=== PATIENT | female | born 1965 | race Caucasian/White ===

== ENCOUNTER 2017-06-19 12:18 | Emergency (ER) | payer BC ==
[2017-06-19 14:35] VITALS: BP 113/61
--- NOTE | 2017-06-19 14:55 | UC ---
Masood Montero Thomas, scribed for Miri Etienne MD on 06/19/17 at 1443 . Respiratory Complaint HPI - HPI Summary HPI Summary: The pt is a 51 y/o F presenting to E c/o a cough that began four days ago. The cough produces green sputum. No wheeze, no SOB. The patient has treated the cough with no OTC medications so far but has tried homeopathic oils and nasal spray. She is unsure whether this production is from her sinuses or her lungs. Pt additionally c/o nasal drainage, nasal congestion, generalized malaise, postnasal drip, decreased appetite, and chills. Pt had nausea with vomit on Saturday - improved. Pt denies wheezing and fevers. She is not immunocompromised. She has been able to drink and eat today. She reports that her daughter was recently sick with similar sx. 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 She is accompanied by her daughter. 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 The patients PCP is Dr. Joyce. Patients medication reviewed this visit. - History of Current Complaint Chief Complaint: UCRespiratory Stated Complaint: COUGH Time Seen by Provider: 06/19/17 14:32 Hx Obtained From: Patient, Family/Hotel Yardperson - daughter in the room Hx Last Menstrual Period: 3 weeks ago Onset/Duration: Gradual Onset, Lasting Days - onset four days ago Timing: Constant Character: Cough: Productive, Sputum Description: - green Aggravating Factors: Nothing Alleviating Factors: Nothing Associated Signs And Symptoms: Positive: Chills, Nasal Congestion. Negative: Fever, Wheezing - Allergies/Home Medications Allergies/Adverse Reactions: Allergies Allergy/AdvReac Type Severity Reaction Status Date / Time Sulfa Drugs Allergy Rash Uncoded 06/19/17 14:35 PMH/Surg Hx/FS Hx/Imm Hx Previously Healthy: No Endocrine History: Hypothyroidism Neurological History: Migraine - Surgical History Surgical History: Yes Surgery Procedure, Year, and Place: Ruptured ectopic -2003, Ectopic removed - Family History Known Family History: Positive: Diabetes - Social History Occupation: Employed Full-time Lives: With Family Alcohol Use: Rare Substance Use Type: None Smoking Status (MU): Never Smoked Tobacco Review of Systems Constitutional: Chills, Other - generalized malaise, decreased appetite; NEG: fever Skin: Negative Eyes: Negative ENT: Nasal Discharge, Other - nasal congestion, postnasal drip Respiratory: Cough - green, Other - NEG: wheezing Cardiovascular: Negative Gastrointestinal: Negative Genitourinary: Negative Motor: Negative Neurovascular: Negative Musculoskeletal: Negative Neurological: Negative Psychological: Negative Is Patient Immunocompromised?: No All Other Systems Reviewed And Are Negative: Yes Physical Exam Triage Information Reviewed: Yes Appearance: Well-Appearing, No Pain Distress, Well-Nourished Vital Signs: Initial Vital Signs Temp 97.2 F 06/19/17 14:30 Pulse 76 06/19/17 14:30 BP 113/61 06/19/17 14:30 Pulse Ox 97 06/19/17 14:30 Vital Signs Reviewed: Yes Eye Exam: Normal Eyes: Positive: Conjunctiva Clear, Conjunctiva Inflamed ENT Exam: Normal ENT: Positive: Hearing grossly normal, Nasal congestion, Other: - left TM with fluid + erythma no retraction right TM wnl turbinates inflammed + PND, no erythema, exudate uvula midline Neck exam: Normal Neck: Positive: Supple, Nontender, No Lymphadenopathy Respiratory Exam: Normal Respiratory: Positive: Chest non-tender, Lungs clear, Normal breath sounds, No respiratory distress, No accessory muscle use, Other: - + BS throughout no w/r No increased WOB no retractions Cardiovascular Exam: Normal Cardiovascular: Positive: RRR, No Murmur, Pulses Normal Abdominal Exam: Normal Abdomen Description: Positive: Nontender, No Organomegaly, Soft Bowel Sounds: Positive: Present Musculoskeletal Exam: Normal Musculoskeletal: Positive: Strength Intact, ROM Intact, No Edema Neurological Exam: Normal Neurological: Positive: Alert Psychological Exam: Normal Psychological: Positive: Normal Response To Family Skin Exam: Normal UC Diagnostic Evaluation - Laboratory O2 Sat by Pulse Oximetry: 97 Respiratory Course/Dx - Course Course Of Treatment: The pt is a 51 y/o F a cough with green sputum that began four days ago. The cough produces green sputum. Pt additionally c/o nasal drainage, nasal congestion, generalized malaise, postnasal drip, decreased appetite, and chills. d/w pt. Will check influenza. If neg, will give abx for sinusitis, early bronchitis. pt requesting work note. Pt comfortable and in agreement with plan - Differential Dx/Diagnosis Provider Diagnoses: sinusitis Discharge - Discharge Plan Condition: Stable Disposition: HOME Prescriptions: Azithromycin TAB* [Zithromax TAB (Z-ALMA) 250 mg #6 tabs] 2 tab PO .TODAY, THEN 1 DAILY #1 alam Fluticasone NASAL * [Flonase *] 2 spray BOTH NARES DAILY #1 spray Patient Education Materials: Sinusitis (ED) Forms: *Gen. Provider Communication, *Work Release Referrals: Maria Luisa Joyce MD [Primary Care Provider] - Additional Instructions: - STay well hydrated. Drink plenty of non-alcoholic, non-caffinated beverages - take antibiotics as prescribed -use nasal spray as instructed once daily - After you have been on antibiotics for 2 days - change your toothbrush and your pillowcase. These infections are spread by secretions - do NOT share eating or drinking utensils - clean items you share with other people such as iphone, computer mouse, TV remote, etc - Alternate ibuprofen (Advil, motrin) 600mg and tylenol every 3 hours for pain or fever. Do NOT take ibuprofen if you are taking Naprosyn - Call your doctor or return with questions or concerns The documentation as recorded by the Masood robledo Thomas accurately reflects the service I personally performed and the decisions made by , Miri tEienne MD.
== END 2017-06-19 15:42 | disposition home or self-care (01) ==
LOC: UCEAST 12:18
DX: J32.9 Chronic sinusitis, unspecified (principal); R05 Cough; R68.83 Chills (without fever); E03.9 Hypothyroidism, unspecified; G43.909 Migraine, unspecified, not intractable, without status migrainosus; Z88.2 Allergy status to sulfonamides
CPT/HCPCS: 87502; 99212; G0463

== ENCOUNTER 2018-02-03 20:17 | Emergency (ER) | payer BC ==
[2018-02-03] MEDS ORDERED: NS 0.9% 1000 ML* 1,000 ML IV ONE (22:41)
[2018-02-03] MEDS ORDERED: Ondansetron INJ* 2 MG/ML VIAL IV ONE (22:44)
[2018-02-03] MEDS ORDERED: Morphine VIAL* 4 MG/ML VIAL (1 ml vial) IV ONE (22:44)
[2018-02-03] MEDS ORDERED: Ondansetron ODT TAB* 4 MG ONE (22:51)
[2018-02-03] MEDS ORDERED: Ondansetron ODT TAB* 4 MG PO ONE (23:03)
[2018-02-03 23:18] LABS: ABS Basophils 0 10^3/ul (0-0.2); ABS Eosinophils 0.1 10^3/ul (0-0.6); ABS Monocytes 0.5 10^3/ul (0-0.8); ABS Neutrophils 5.2 10^3/ul (1.5-7.7); ABS Nucleated RBC 0 10^3/ul; Eosinophil % 2.2 % (0-6); Hematocrit 39 % (35-47); Hemoglobin 12.9 g/dl (12.0-16.0); Lymphocyte % 15.2 % (25-47); Mean Corpuscular HGB Conc 34 g/dl (31-36); Mean Corpuscular Hemoglobin 29 pg (27-31); Mean Corpuscular Volume 87 fL (80-97); Mean Platelet Volume 8.8 um3 (7.4-10.4); Nucleated Red Blood Cells % 0; Platelet Count 159 10^3/ul (150-450); Red Blood Count 4.42 10^6/ul (4.0-5.4); Red Cell Distribution Width 13 % (10.5-15); White Blood Count 6.9 10^3/ul (3.5-10.8)
[2018-02-03 23:23] LABS: INR 0.96 (0.77-1.02)
[2018-02-03 23:32] LABS: EGFR Non-African American 71.6 (>60)
[2018-02-04 01:12] VITALS: BP 109/58
--- NOTE | 2018-02-04 02:45 | ED ---
Maeyla Montero Rebecca, scribed for Jimi Morillo MD on 02/03/18 at 2242 . Head Injury - HPI Summary HPI Summary: Pt is a 52 y/o F who presents to ED c/o HASKINS and neck pain s/p falling from horse. Yesterday, at approximately 1730 she was bucked off a horse. Pt believes she hit the left side of her head and back. Confirms she was wearing a helmet and was not immediately evaluated after fall. HASKINS began this morning, initially feeling like a migraine, though gradually worsening throughout the day. Took Ibuprofen last night and rizatriptan this morning which did not improve symptoms though it typically is effective. Associated pain is currently moderate , ranked 5/10. Additionally c/o lower back pain, nausea. Denies photophobia, weakness, and numbness. Evaluated by [facility] who referred her to [facility] [place] ED. - History Of Current Complaint Chief Complaint: EDHeadInjury Stated Complaint: FALL/BACK AND HEAD INJURY Time Seen by Provider: 02/03/18 22:34 Hx Obtained From: Patient Hx Last Menstrual Period: 3 weeks ago Mechanism Of Injury: Fall From Height Of: - Horse Onset/Duration: Still Present Onset of Pain: Hours - This morning Severity Currently: Moderate Pain Intensity: 5 Pain Scale Used: 0-10 Numeric Location of Head Injury: Frontal - Left Associated Signs And Symptoms: Neck Pain, Nausea - Allergies/Home Medications Allergies/Adverse Reactions: Allergies Allergy/AdvReac Type Severity Reaction Status Date / Time Sulfa Drugs Allergy Rash Uncoded 06/19/17 14:35 PMH/Surg Hx/FS Hx/Imm Hx Endocrine/Hematology History: Reports: Hx Thyroid Disease - Low Functioning Thyroid Denies: Hx Diabetes Cardiovascular History: Denies: Hx Hypertension Respiratory History: Denies: Hx Asthma, Hx Chronic Obstructive Pulmonary Disease (COPD) GI History: Denies: Hx Ulcer Musculoskeletal History: Reports: Hx Rheumatoid Arthritis Neurological History: Reports: Hx Migraine - Surgical History Surgery Procedure, Year, and Place: Ruptured ectopic -2003, Ectopic removed Infectious Disease History: No Infectious Disease History: Denies: Hx Clostridium Difficile, Hx Hepatitis, Hx Human Immunodeficiency Virus (HIV), Hx of Known/Suspected MRSA, Hx Shingles, Hx Tuberculosis, Hx Known/ Suspected VRE, Hx Known/Suspected VRSA, History Other Infectious Disease, Traveled Outside the [place] in Last 30 Days - Family History Known Family History: Positive: Diabetes - Social History Alcohol Use: Rare Substance Use Type: Reports: None Smoking Status (MU): Never Smoked Tobacco Review of Systems Negative: Photophobia Positive: Nausea Positive: Other - Neck pain, lower back pain Positive: Headache. Negative: Weakness, Numbness All Other Systems Reviewed And Are Negative: Yes Physical Exam - Summary Physical Exam Summary: VITAL SIGNS: Reviewed. GENERAL: ~Patient is a well-developed and nourished female who is lying comfortable in the stretcher. Patient is not in any acute respiratory distress. HEAD AND FACE: Ecchymosis over the left eye. No skull depressions. No sinus tenderness. EYES: PERRLA, EOMI x 2, No injected conjunctiva, no nystagmus. EARS: Hearing grossly intact. Ear canals and tympanic membranes are within normal limits. MOUTH: Oropharynx within normal limits. NECK: Supple, trachea is midline, no adenopathy, no JVD, no carotid bruit, no c- spine tenderness, neck with full ROM. CHEST: Symmetric, no tenderness at palpation LUNGS: Clear to auscultation bilaterally. No wheezing or crackles. CVS: Regular rate and rhythm, S1 and S2 present, no murmurs or gallops appreciated. ABDOMEN: Soft, non-tender. No signs of distention. No rebound no guarding, and no masses palpated. Bowel sounds are normal. EXTREMITIES: FROM in all major joints, no edema, no cyanosis or clubbing. Tenderness over the cervical and lumbar spines. NEURO: Alert and oriented x 3. No acute neurological deficits. Speech is normal and follows commands. SKIN: Dry and warm Triage Information Reviewed: Yes Vital Signs On Initial Exam: Initial Vitals Temp Pulse Resp BP Pulse Ox 97.1 F 72 20 103/65 97 02/03/18 20:32 02/03/18 20:32 02/03/18 20:32 02/03/18 20:32 02/03/18 20:32 Vital Signs Reviewed: Yes - [place] Coma Scale Glascow Coma Scale Comments: 15 Diagnostics - Vital Signs Vital Signs Temp Pulse Resp BP Pulse Ox 02/03/18 20:32 97.1 F 72 20 103/65 97 - Laboratory Result Diagrams: 02/03/18 23:09 02/03/18 23:09 Lab Statement: Any lab studies that have been ordered have been reviewed, and results considered in the medical decision making process. - CT Brain CT CT Interpretation: No Acute Changes - No acute pathology. ED physician reviewed this radiology report. Pending official report. CT Interpretation Completed By: Radiologist L-Spine CT CT Interpretation: Positive (See Comments) - Fractures of the L3 and L4 spinous processes. ED physician reviewed this radiology report. Pending official report. CT Interpretation Completed By: Radiologist C-Spine CT CT Interpretation: No Acute Changes - No fracture. ED physician reviewed this radiology report. Pending official report. CT Interpretation Completed By: Radiologist Maxillofacial CT CT Interpretation: No Acute Changes - No acute facial bone fracture. ED physician reviewed this radiology report. Pending official report. CT Interpretation Completed By: Radiologist T-Spine CT CT Interpretation: No Acute Changes - No fracture. ED physician reviewed this radiology report. Pending official report. CT Interpretation Completed By: Suzanne Head Injury Course/Dx Assessment/Plan: Pt is a 52 y/o F who presents to ED c/o HASKINS and neck pain s/p falling from horse. Yesterday, at approximately 1730 she was bucked off a horse. Pt believes she hit the left side of her head and back. Confirms she was wearing a helmet and was not immediately evaluated after fall. HASKINS began this morning, initially feeling like a migraine, though gradually worsening throughout the day. Took Ibuprofen last night and rizatriptan this morning which did not improve symptoms though it typically is effective. Associated pain is currently moderate, ranked 5/10. Additionally c/o lower back pain, nausea. Denies photophobia, weakness, and numbness. Evaluated by [facility] who referred her to [facility] [place] [place] ED. Blood work was done. T-spine, C-Spine, brain, maxillofacial CTs reveal no acute findings. L-Spine CT reveals L3 and L4 spinous process fracture. In the ED course, pt received morphine, zofran, and fluids. Pt will be D/C to home with Dx of lumbar spine spinous process fracture. Allergy noted. - Diagnoses Provider Diagnoses: Fracture of spinous process of lumbar vertebra Discharge - Sign-Out/Discharge Documenting (check all that apply): Discharge/Admit/Transfer - Discharge - Discharge Plan Condition: Stable Disposition: HOME Prescriptions: Ibuprofen TAB* [Motrin TAB* 800 MG] 800 mg PO Q6H PRN #30 tab PRN Reason: Pain oxyCODONE/Acetamin 5/325 MG* [Percocet 5/325 TAB*] 1 tab PO Q6H PRN #14 tab MDD 4 PRN Reason: Pain Patient Education Materials: Thoracolumbar Fracture (ED) Forms: *Work Release Referrals: Shyla Hollingsworth MD [Primary Care Provider] - 3 Days Additional Instructions: RETURN TO EMERGENCY DEPARTMENT FOR ANY NEW OR WORSENING SYMPTOMS. The documentation as recorded by the Mayela robledo Rebecca accurately reflects the service I personally performed and the decisions made by Ilia thornton Abdul, MD.
--- NOTE | 2018-02-04 08:16 | RAD ---
INDICATION: Fall, headache. COMPARISON: There are no prior studies available for comparison. TECHNIQUE: Contiguous axial sections of the brain were obtained from the skull base to the vertex without contrast. FINDINGS: The ventricles, cisterns and sulci are within normal limits. No significant focal abnormality or mass effect is seen. There is no evidence for hemorrhage. No significant focal osseous abnormality is seen. The visualized portion of the paranasal sinuses and mastoid air cells appear clear. IMPRESSION: NO EVIDENCE FOR ACUTE INTRACRANIAL ABNORMALITY.
--- NOTE | 2018-02-04 08:18 | RAD ---
INDICATION: Fall from a horse. Patient report of head and neck pain. ED request for CT imaging of the brain, cervical spine, thoracic spine, lumbar spine, and maxillary facial CT COMPARISON: CT brain same date; cervical spine same date TECHNIQUE: Axial source images were acquired from the vertex of the mandible through the orbits. Coronal and sagittal reconstructed images were acquired. FINDINGS: Bones: There is no acute facial bone fracture. Orbits: The globes and intraconal structures appear intact. The optic nerves are symmetric. Extraocular muscles appear normal. There is no intraconal inflammatory change or retrobulbar mass.. Paranasal sinuses: The paranasal sinuses are clear. Brain: There are no acute abnormalities of the visualized brain parenchyma. Soft tissues: Normal Other: None There are no significant soft tissue changes about the visualized facial structures are intact. IMPRESSION: NO ACUTE FACIAL BONE FRACTURE.
--- NOTE | 2018-02-04 08:21 | RAD ---
INDICATION: Neck pain after a fall COMPARISON: None. TECHNIQUE: Axial source images were acquired with coronal and sagittal reformatting. FINDINGS: There is straightening of the normal cervical lordosis. The vertebral bodies and facet joints are otherwise appropriately aligned. There is loss of intervertebral disc height at multiple levels, most severely at C5/C6. There is no fracture or focal bony lesion. The canal and foramina appear widely patent. The odontoid and the atlantodental interval are normal. The prevertebral soft tissues appear normal. There are subcentimeter hypoattenuating foci in the right lobe of the thyroid. There is a more elongated hypoattenuating focus in the left lobe of the thyroid. Otherwise the visualized soft tissue elements of the neck are normal. The visualized lung apices are clear. IMPRESSION: 1. DEGENERATIVE CHANGES OF THE CERVICAL SPINE WITHOUT ACUTE FRACTURE OR DISLOCATION. 2. LOW-ATTENUATION FOCI IN THE THYROID. IF CLINICALLY WARRANTED SUPERIOR CHARACTERIZATION OF THE THYROID CAN BE ACQUIRED WITH A NONEMERGENT ULTRASOUND.
--- NOTE | 2018-02-04 08:23 | RAD ---
INDICATION: Fall from horse. Back pain. COMPARISON: None TECHNIQUE: Noncontrast axial source images was performed from the thoracic inlet to the level the hemidiaphragms. Coronal and and sagittal reformatted images were generated. FINDINGS: Vertebrae: There is no fracture or acute focal bony lesion. There is minor multilevel degenerative spurring of the midthoracic spine Alignment: There is minor kyphosis or this is positional. Central Canal: There are no significant CT abnormalities of the central canal or foramina. MR imaging is a more sensitive method to evaluate the canal and foramina. Intervertebral disc spaces: The disc spaces are maintained. Soft tissues: There are no paravertebral soft tissue abnormalities. IMPRESSION: NO ACUTE FRACTURE.
--- NOTE | 2018-02-04 08:26 | RAD ---
INDICATION: Back pain. COMPARISON: There are no prior studies available for comparison. TECHNIQUE: Contiguous axial sections were obtained beginning above the L1 vertebra and continuing through the L5-S1 disc space. Images were reconstructed in the sagittal and coronal planes. FINDINGS: There is a mild lumbar scoliosis convex toward the left side. The vertebra are otherwise in normal alignment. There are slightly distracted fractures through the spinous processes of the L3 and L4 vertebra. There is no extension into the lamina. The vertebra are otherwise intact. At the L2-L3 level there is a mild broad-based disc bulge and mild hypertrophic changes within the facet joints. There is mild to moderate spinal canal narrowing and mild bilateral neural foraminal narrowing. At the L3-L4 level there is a mild broad-based disc bulge and mild hypertrophic changes within the facet joints. There is moderate spinal canal narrowing and mild bilateral neural foraminal narrowing. At the L4-L5 level there is a mild broad-based disc bulge and moderate hypertrophic changes within the facet joints. There is mild to moderate spinal canal narrowing and moderate bilateral neural foraminal narrowing. The L5-S1 level there is a minimal central disc protrusion. No significant spinal canal narrowing or neural foraminal narrowing is noted. There are moderate hypertrophic changes within the facet joints. IMPRESSION: 1. SLIGHTLY DISPLACED FRACTURES OF THE L3 AND L4 SPINOUS PROCESSES. 2. MODERATE LUMBAR SPONDYLITIC CHANGES NOTED.
== END 2018-02-04 01:11 | disposition home or self-care (01) ==
LOC: ED 20:17
DX: S32.039A Unspecified fracture of third lumbar vertebra, initial encounter for closed fracture (principal); S32.049A Unspecified fracture of fourth lumbar vertebra, initial encounter for closed fracture; V80.010A Animal-rider injured by fall from or being thrown from horse in noncollision accident, initial encounter; Y93.52 Activity, horseback riding; Y92.9 Unspecified place or not applicable; Z88.2 Allergy status to sulfonamides
CPT/HCPCS: 36415; 70450; 70486; 72125; 72128; 72131; 80053; 82150; 83605; 83690; 85025; 85610; 96361; 96374; 99282; A9270-GY; J2270

== ENCOUNTER 2019-04-30 21:04 | Inpatient (IN) | payer BC ==
[2019-04-30] MEDS ORDERED: oxyCODONE TAB* 5 MG TAB PO ONE (21:23)
[2019-04-30] MEDS ORDERED: Ondansetron INJ* 2 MG/ML VIAL IV ONE (21:29)
[2019-04-30] MEDS ORDERED: Morphine 4 MG/ML VIAL (1 ml) 4 MG/ML VIAL IV ONE ×2 (21:29→22:56)
--- NOTE | 2019-04-30 21:45 | ED ---
Adult Trauma - HPI Summary HPI Summary: Patient complains of right hand and right hip pain status post fall from horse. Patient states she was wearing helmet. Denies LOC, HASKINS, vision change, AMS, neck pain, any other pain injury or symptoms. Has not ambulated since fall. - History of Current Complaint Chief Complaint: EDTraumaMultiple Stated Complaint: FELL OF HORSE PER EMS Time Seen by Provider: 04/30/19 21:20 Hx Obtained From: Patient, Family/Deputy Prosecuting Attorney Hx Last Menstrual Period: 3 weeks ago Mechanism of Injury: Fall Ambulatory at the Scene: No Loss of Consciousness: no loss of consciousness Restraints: Helmet Onset/Duration: Started Hours Ago Onset of Pain: Immediate Onset Severity: Moderate Current Severity: Moderate Pain Intensity: 6 Pain Scale Used: 0-10 Numeric Location: Abdomen/Pelvis, Extremities Character: Dull, Aching, Sharp Aggravating Factor(s): Movement Alleviating Factor(s): Nothing Associated Signs & Symptoms: Positive: Negative - Allergy/Home Medications Allergies/Adverse Reactions: Allergies Allergy/AdvReac Type Severity Reaction Status Date / Time Sulfa Drugs Allergy Rash Uncoded 06/19/17 14:35 PMH/Surg Hx/FS Hx/Imm Hx Endocrine/Hematology History: Reports: Hx Thyroid Disease - Low Functioning Thyroid Denies: Hx Diabetes Cardiovascular History: Denies: Hx Hypertension Respiratory History: Denies: Hx Asthma, Hx Chronic Obstructive Pulmonary Disease (COPD) GI History: Denies: Hx Ulcer Musculoskeletal History: Reports: Hx Rheumatoid Arthritis Sensory History: Denies: Hx Legally Blind Opthamlomology History: Denies: Hx Eye Prosthesis EENT History: Denies: Hx Deafness Neurological History: Reports: Hx Migraine Psychiatric History: Denies: Hx Autism - Surgical History Surgery Procedure, Year, and Place: Ruptured ectopic -2004, Ectopic removed Infectious Disease History: No Infectious Disease History: Denies: Hx Clostridium Difficile, Hx Hepatitis, Hx Human Immunodeficiency Virus (HIV), Hx of Known/Suspected MRSA, Hx Shingles, Hx Tuberculosis, Hx Known/ Suspected VRE, Hx Known/Suspected VRSA, History Other Infectious Disease, Traveled Outside the [place] in Last 30 Days - Family History Known Family History: Positive: Diabetes - Social History Alcohol Use: Rare Substance Use Type: Reports: None Smoking Status (MU): Never Smoked Tobacco Review of Systems Constitutional: Negative Eyes: Negative ENT: Negative Cardiovascular: Negative Respiratory: Negative Gastrointestinal: Negative Genitourinary: Negative Musculoskeletal: Other Skin: Negative Neurological: Negative Psychological: Normal All Other Systems Reviewed And Are Negative: Yes Physical Exam - Summary Physical Exam Summary: No ecchymosis, erythema, deformity, swelling noted to right hip or right lower extremity. Swelling noted to dorsal surface of lateral right hand. No trauma noted to mouth, face, head. Full range of motion of neck and mouth. No pain with palpation of neck, back, chest wall, abdomen. Triage Information Reviewed: Yes Vital Signs On Initial Exam: Initial Vitals Temp Pulse Resp BP Pulse Ox 98.0 F 54 18 122/80 99 04/30/19 21:14 04/30/19 21:14 04/30/19 21:14 04/30/19 21:14 04/30/19 21:14 Vital Signs Reviewed: Yes Appearance: Positive: Well-Appearing Skin: Positive: Warm Head/Face: Positive: Normal Head/Face Inspection Eyes: Positive: Normal Neck: Positive: Supple Respiratory/Lung Sounds: Positive: Clear to Auscultation Cardiovascular: Positive: Normal Abdomen Description: Positive: Nontender Musculoskeletal: Positive: Normal Neurological: Positive: Normal Psychiatric: Positive: Normal AVPU Assessment: Alert - Brit Coma Scale Best Eye Response: 4 - Spontaneous Best Motor Response: 6 - Obeys Commands Best Verbal Response: 5 - Oriented Coma Scale Total: 15 Procedures - Splinting 1 Location: right wrist Hand-Made Type: orthoglass Splint: ulnar - gutter Pre-Proc Neuro Vasc Exam: normal Post-Proc Neuro Vasc Exam: normal Diagnostics - Vital Signs Vital Signs Temp Pulse Resp BP Pulse Ox 04/30/19 21:34 18 04/30/19 21:14 98.0 F 54 18 122/80 99 - Laboratory Lab Statement: Any lab studies that have been ordered have been reviewed, and results considered in the medical decision making process. Adult Trauma Course/Dx - Course Course Of Treatment: Patient complains of right hand and right hip pain status post fall from horse. Patient states she was wearing helmet. Denies LOC, HASKINS, vision change, AMS, neck pain, any other pain injury or symptoms. Has not ambulated since fall. Vital signs within normal limits. X-ray positive for right femoral neck fracture. X-ray positive for right fifth metacarpal shaft fracture. Ulnar splint placed on right upper extremity. Patient admitted to hospitalist. - Diagnoses Provider Diagnoses: Fracture neck of femur, Fracture of fifth metacarpal bone Discharge - Sign-Out/Discharge Documenting (check all that apply): Patient Departure Patient Received Moderate/Deep Sedation with Procedure: No - Discharge Plan Condition: Stable Disposition: ADMITTED TO [facility] Referrals: Shital Valle MD [Primary Care Provider] - - Billing Disposition and Condition Condition: STABLE Disposition: Ad[facility] to [facility]
[2019-04-30] MEDS ORDERED: NS 0.9% 1000 ML** 1,000 ML IV ONE (22:56)
[2019-04-30] MEDS ORDERED: fentaNYL* 50 MCG/ML 2 ML VIAL (100 MCG VIAL) IV SLOW PU ONE (23:01)
[2019-05-01] MEDS ORDERED: fentaNYL* 50 MCG/ML 2 ML VIAL (100 MCG VIAL) IV SLOW PU ONE (00:06)
[2019-05-01] MEDS ORDERED: HYDROmorphone INJ* 0.5 MG/0.5 ML SYRINGE IV SLOW PU PRN (01:37)
[2019-05-01] MEDS: HYDROmorphone INJ1* 1 MG/ML SYRINGE IV SLOW PU PRN ×4 (01:52→16:05)
[2019-05-01 02:06] LABS: ABS Basophils 0.1 10^3/ul (0-0.2); ABS Lymphocytes 1.4 10^3/ul (1.0-4.8); ABS Monocytes 0.7 10^3/ul (0-0.8); ABS Neutrophils 8.6 10^3/ul (1.5-7.7); Eosinophil % 0.2 %; Hematocrit 38 % (35-47); Hemoglobin 13.3 g/dL (12.0-16.0); Lymphocyte % 12.7 %; Mean Corpuscular HGB Conc 35 g/dL (31-36); Mean Corpuscular Hemoglobin 30 pg (27-31); Mean Corpuscular Volume 86 fL (80-97); Mean Platelet Volume 8.4 fL (7.4-10.4); Platelet Count 166 10^3/uL (150-450); Red Blood Count 4.37 10^6 /uL (3.70-4.87); Red Cell Distribution Width 14 % (10-15); White Blood Count 10.8 10^3/uL (3.5-10.8)
[2019-05-01 02:11] LABS: INR 0.99 (0.82-1.09)
[2019-05-01 02:21] LABS: BUN/Creatinine Ratio 17.9 (8-20); EGFR African American 73.9 (>60); EGFR Non-African American 61.1 (>60); Potassium 3.6 mmol/L (3.5-5.0)
[2019-05-01] MEDS: NS 0.9% 1000 ML** 1,000 ML IV SCH ×2 (03:29→17:44)
--- NOTE | 2019-05-01 04:44 | HP ---
CC: Dr. Valle * HISTORY AND PHYSICAL: DATE OF ADMISSION: 05/01/19 PRIMARY CARE PROVIDER: Dr. Valle. CHIEF COMPLAINT: Fall from horse and right hip pain. HISTORY OF PRESENT ILLNESS: Ms. Dove is a 53-year-old female who has a history of hypothyroidism and questionable rheumatoid arthritis, who was horseback riding on the evening prior to admission, when she fell off at approximately 7:30 to 7:45 p.m. She immediately had right hip pain and was unable to get up on her own. Luckily, she was riding with another individual. She was brought into the emergency room for evaluation. The patient continues to have severe pain. She is having spasms within the right leg. She additionally has right hand pain though this is much less severe than the hip. She was found to have a right femoral neck fracture and right fifth metacarpal fracture. In terms of the patient's exercise capacity, she is active throughout the day. She does run. She denies any chest pain or shortness of breath with these activities. She has never had a stress test. PAST MEDICAL HISTORY: 1. Hypothyroidism. 2. Questionable rheumatoid arthritis. PAST SURGICAL HISTORY: 1. Ear tubes. 2. Surgery for 2 ectopic pregnancies. MEDICATIONS: [place] Thyroid 30 mg p.o. daily. ALLERGIES: No known drug allergies. FAMILY HISTORY: Mom is living, she is 86. She has a history of AFib, COPD, and she has had a valve replacement. Dad at the age of 52. He had diabetes, but he committed suicide. SOCIAL HISTORY: The patient does not smoke. She drinks alcohol rarely. 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 Her daughter, Saqib Santa , would be her healthcare proxy. REVIEW OF SYSTEMS: A complete 11-system review of systems is obtained. Pertinent positives and negatives are as per HPI, and in addition, the patient does state she suffers from constipation frequently. The remainder of the review of systems is negative. PHYSICAL EXAMINATION GENERAL: The patient is a well-developed, middle-aged female seen lying in the stretcher, appearing to be uncomfortable but in no acute distress. VITAL SIGNS: Blood pressure 96/71, pulse 57, respirations 13, temp 98, O2 sat 97% on room air. HEENT: Pupils are equal and round. Extraocular muscles are intact. Oropharynx is clear. Oral mucosa is moist. There are no submandibular, cervical, or supraclavicular adenopathy. PULMONARY: Lungs are clear to auscultation bilaterally anteriorly and to the lateral bases. CARDIAC: Normal S1, S2. Regular rate and rhythm. I do not appreciate any murmurs. There is no lower extremity edema. ABDOMEN: Bowel sounds are present. Abdomen is soft, nontender, nondistended. MUSCULOSKELETAL: The right lower extremity is externally rotated. The patient moves the upper extremities and left lower extremity actively. SKIN: Warm and dry. There are no rashes. NEUROLOGIC: Cranial nerves II through XII are grossly intact. Sensation is intact to light touch throughout. Strength is normal on the left side. Right side of strength is not tested at this time due to her fractures. PSYCH: The patient is alert. She is oriented x3. Affect appears appropriate. DIAGNOSTIC STUDIES/LAB DATA: No labs. I will order these now. Right hip x- ray reveals a femoral neck fracture. Right hand x-ray reveals a fifth metacarpal fracture. ASSESSMENT AND PLAN: Ms. Dove is a 53-year-old healthy female with a history of hypothyroidism who was horseback riding when she fell off the horse and unfortunately sustained a right femoral neck fracture. 1. Right femoral neck fracture. Orthopedics has been contacted by the emergency room. At this point, I feel that the patient is medically optimized to go to the OR. I am going to obtain an EKG and CBC, BMP, and INR. I do not believe that she needs any further cardiac testing after the EKG is done unless the EKG reveals concerning features. The patient will have p.r.n. hydromorphone for severe pain, which she is currently in. She is having spasms ; however, she is n.p.o. for anticipation of going to the OR later today, I will hold off on any Flexeril. I will also start a bowel regimen in anticipation of the patient becoming constipated in this setting. 2. Hypothyroidism. We will continue home dose of [place] Thyroid. 3. DVT prophylaxis: According to the Adult Thrombosis Prophylaxis Risk Factor Assessment Guide, the patient has a total risk factor score of 6, making her the highest risk. I am going to hold on chemical prophylaxis for now due to the patient likely going to the OR later today and initiate SCDs. 4. Code status is full. TIME SPENT: Fifty-five minutes was spent admitting this patient, of which greater than half was spent [id number] with the patient reviewing her history and performing physical exam. [id number]/[facility] #: [id number] JOELLE
[2019-05-01] MEDS: THYROID PO SCH (11:06)
[2019-05-01] MEDS: Docusate CAP* 100 MG PO SCH ×3 (11:06→20:29)
[2019-05-01] MEDS: Cyclobenzaprine TAB* 10 MG PO PRN (13:23)
[2019-05-01] MEDS ORDERED: Buffered Lidocaine 1% SYRIN* 1 ML/SYRINGE INTRADERM ONE (13:25)
--- NOTE | 2019-05-01 14:52 | PN ---
Subjective Date of Service: 05/01/19 Interval History: Patient resting in bed on assessment. Reports pain in right hip is currently control, but increases with movement or "spasms". Reports pain in right hand is controlled. Denies numbness/tingling, nausea, vomiting, diarrhea, cp, sob. She reports she is having to void in depends as they were not able to establish a patterson during her stay in the ED. She also expresses some constipation. Objective Active Medications: Acetaminophen (Tylenol Tab*) 650 mg PO Q4H PRN PRN Reason: PAIN - MILD Cyclobenzaprine HCl (Flexeril Tab*) 10 mg PO TID PRN PRN Reason: SPASMS Last Admin: 05/01/19 13:23 Dose: 10 mg Dexamethasone Sodium Phosphate (Decadron Iv*) 8 mg IV SLOW PU ONCE ONE Stop: 05/02/19 06:01 Docusate Sodium (Colace Cap*) 100 mg PO BID [facility] Last Admin: 05/01/19 13:23 Dose: 100 mg Hydromorphone HCl (Dilaudid Inj1s*) 1 mg IV SLOW PU Q3H PRN PRN Reason: PAIN - SEVERE Last Admin: 05/01/19 07:46 Dose: 1 mg Sodium Chloride (Ns 0.9% 1000 Ml) 1,000 mls @ 100 mls/hr IV PER RATE [facility] Last Admin: 05/01/19 03:29 Dose: 100 mls/hr Lactated Ringer's (Lactated Ringers 1000 Ml Bag*) 1,000 mls @ 125 mls/hr IV PER RATE [facility] Magnesium Hydroxide (Milk Of Magnesia Liq*) 30 ml PO BID PRN PRN Reason: CONSTIPATION Nft: [place] Thyroid (1 Tab) 1 tab PO DAILY [facility] Last Admin: 05/01/19 11:06 Dose: Not Given Oxycodone HCl (Roxycodone Tab*) 5 mg PO Q6H PRN PRN Reason: PAIN - MODERATE Oxycodone HCl (Roxycodone Tab*) 10 mg PO Q6H PRN PRN Reason: PAIN - SEVERE Polyethylene Glycol/Electrolytes (Miralax*) 17 gm PO DAILY PRN PRN Reason: CONSTIPATION Senna (Senokot Tab*) 1 tab PO BEDTIME PRN PRN Reason: CONSTIPATION Vital Signs - 8 hr 05/01/19 05/01/19 05/01/19 07:46 08:12 08:13 Temperature 98.6 F Pulse Rate 69 Respiratory 17 17 Rate Blood Pressure 77/46 84/60 (mmHg) O2 Sat by Pulse 94 Oximetry 05/01/19 05/01/19 08:46 13:23 Temperature Pulse Rate Respiratory 17 17 Rate Blood Pressure (mmHg) O2 Sat by Pulse Oximetry Oxygen Devices in Use Now: None Appearance: Comfortable, NAD Eyes: No Scleral Icterus Ears/Nose/Mouth/Throat: Clear Oropharnyx, Mucous Membranes Moist Neck: NL Appearance and Movements; NL JVP Respiratory: Symmetrical Chest Expansion and Respiratory Effort, Clear to Auscultation Cardiovascular: NL Sounds; No Murmurs; No JVD, RRR, No Edema Abdominal: NL Sounds; No Tenderness; No Distention Lymphatic: No Cervical Adenopathy Extremities: No Clubbing, Cyanosis Skin: No Rash or Ulcers Neurological: Alert and Oriented x 3, NL Sensation Result Diagrams: 05/01/19 01:59 05/01/19 01:59 Additional Lab and Data: Laboratory Results - last 24 hr 05/01/19 05/01/19 05/01/19 01:59 01:59 01:59 WBC 10.8 RBC 4.37 Hgb 13.3 Hct 38 MCV 86 MCH 30 MCHC 35 RDW 14 Plt Count 166 MPV 8.4 Neut % (Auto) 80.1 Lymph % (Auto) 12.7 [place] % (Auto) 6.5 Eos % (Auto) 0.2 Baso % (Auto) 0.5 Absolute Neuts (auto) 8.6 H Absolute Lymphs (auto) 1.4 Absolute Monos (auto) 0.7 Absolute Eos (auto) 0.0 Absolute Basos (auto) 0.1 Absolute Nucleated RBC 0.0 Nucleated RBC % 0.0 INR (Anticoag Therapy) 0.99 Sodium 137 Potassium 3.6 Chloride 106 Carbon Dioxide 26 Anion Gap 5 BUN 17 Creatinine 0.95 Est GFR ( Amer) 73.9 Est GFR (Non-Af Amer) 61.1 BUN/Creatinine Ratio 17.9 Glucose 113 H Calcium 9.0 Microbiology and Other Data: . Assess/Plan/Problems-Billing Assessment: 53 yr old female with pmh of hypothyroid and RA; who presented to ED after a fall from a horse which resulted in right femoral neck fx - Patient Problems (1) Fracture of femoral neck, right Comment: - Discussed case with Dr Guardado who will be seeing patient this afternoon with plans to go to OR tomorrow at 0800 - Patient provided with PO pain medications including muscle relaxer as she is now taking food - Will be NPO after midnight - Offered patterson for comfort and patient is agreeable to an additional attempt at patterson (2) Hypothyroid Comment: - Cont [place] Thyroid - TSH wnl (3) Rheumatoid arthritis Comment: - Not currently on medications. - Reports she manages symptoms with diet, therefore, diet order placed for no dairy and no gluten. (4) DVT prophylaxis Comment: - Highest Risk - Heparin Sub Q with last dose 2200 tonight in prep for OR Status and Disposition: OR tomorrow. Attending: Bhavin Albright
[2019-05-01 15:43] LABS: TSH (Thyroid Stimulating Horm) 4.92 mcIU/mL (0.34-5.60)
--- NOTE | 2019-05-01 15:54 | CONS ---
ORTHOPEDIC CONSULTATION: DATE OF CONSULT: 05/01/19 ATTENDING PHYSICIAN: Dr. Morgan. ATTENDING ORTHOPEDIC PHYSICIANS: Dr. Benjamín Tobar, Dr. Delores Guardado. CHIEF COMPLAINT: Right hip pain, right hand pain. HISTORY OF PRESENT ILLNESS: Ms. Dove is a 53-year-old active female who was horseback riding on the evening prior to her admission when she was bucked off the horse at roughly 7:30 p.m. She immediately complained of right hip pain and was unable to ambulate. She was riding with another individual who summoned EMS and she was brought to the emergency room for evaluation. She complained of right hand pain as well and plain films of the right hip and right upper extremity have revealed femoral neck fracture on the right and a right fifth metacarpal fracture. She is admitted to the hospitalist service and Orthopedic service has been consulted for her aforementioned injuries. The patient denies recent loss of consciousness or upon her fall, denies other bodily injury other than the aforementioned injuries. PAST MEDICAL HISTORY: Significant for hypothyroidism, questionable rheumatoid arthritis. PAST SURGICAL HISTORY: She has had myringotomy tubes and surgery for 2 ectopic pregnancies. MEDICATIONS: [place] Thyroid 30 mg p.o. daily. ALLERGIES: No known drug allergies. FAMILY HISTORY: The patient's mother is living, history of COPD, heart valve surgery, and atrial fibrillation. Father with a history of diabetes. SOCIAL HISTORY: The patient does not smoke. Rarely drinks alcoholic beverages. Denies use of illicit drugs. She works as a [employer] nurse. She is not . She has 1 child. REVIEW OF SYSTEMS: An 11-point review of systems reviewed with the patient and is per HPI. She also has a history of chronic constipation. PHYSICAL EXAMINATION: General: She is lying supine in the hospital bed. She is alert and oriented x3. She is in no acute distress, pleasant and cooperative. Vital Signs: Revealed a temperature of 98.6, pulse 67, respiratory rate 17, O2 saturation 94% on room air, blood pressure 84/60. HEENT : PERRLA. Lungs: Clear to auscultation. Heart: Regular rate and rhythm. Abdomen: Nontender, nondistended. Normoactive bowel sounds x4. Musculoskeletal: Her leg is in neutral alignment, mild shortening is noted. She has a 2+ dorsalis pedis pulse. She has active dorsiflexion of the right ankle. She has decreased sensation in the toes present from idiopathic peripheral neuropathy. Her calf is nontender and soft. Right upper extremity is currently in a ulnar gutter splint. She has a 2+ radial pulse. Moving her thumb, index and long finger without difficulty. DIAGNOSTIC STUDIES/LAB DATA: Plain films of the pelvis and right hip revealed a displaced right femoral neck fracture. Plain films of the right upper extremity revealed an angulated fifth metacarpal fracture. IMPRESSION AND PLAN: Right femoral neck fracture, displaced. Dr. Guardado will discuss her injury and plan thoroughly today. It is recommended that she undergo right total hip arthroplasty for this injury. Her right hand metacarpal fracture may require open reduction and internal fixation. Dr. Tobar will discuss this with the patient as well. She is currently comfortable in the ulnar gutter splint. She will remain n.p.o. after midnight tonight for probable surgical intervention with Dr. Guardado and Dr. Tobar on 12/16. EVETTE RAMEY [id number]/[facility] #: [id number] MTDD
[2019-05-01] MEDS ORDERED: Heparin VIAL(*) 5000 UNITS/ML VIAL (FIVE THOUSAND) SUBCUT SCH (22:00)
[2019-05-01] MEDS: Acetaminophen TAB* 325 MG PO PRN (23:40)
[2019-05-02] MEDS: Cyclobenzaprine TAB* 10 MG PO PRN (03:06)
[2019-05-02] MEDS: HYDROmorphone INJ1* 1 MG/ML SYRINGE IV SLOW PU PRN (03:07)
[2019-05-02 05:43] LABS: Hematocrit 37 % (35-47); Hemoglobin 12.9 g/dL (12.0-16.0); Mean Corpuscular HGB Conc 35 g/dL (31-36); Mean Corpuscular Hemoglobin 31 pg (27-31); Mean Corpuscular Volume 87 fL (80-97); Mean Platelet Volume 8.3 fL (7.4-10.4); Platelet Count 127 10^3/uL (150-450); Red Blood Count 4.24 10^6 /uL (3.70-4.87); Red Cell Distribution Width 14 % (10-15); White Blood Count 7.3 10^3/uL (3.5-10.8)
[2019-05-02 05:47] LABS: INR 1.19 (0.82-1.09)
[2019-05-02 05:58] LABS: BUN/Creatinine Ratio 17.1 (8-20); Calcium 8.9 mg/dL (8.6-10.3); EGFR African American 87.6 (>60); EGFR Non-African American 72.4 (>60); Potassium 3.8 mmol/L (3.5-5.0)
[2019-05-02] MEDS ORDERED: Dexamethasone IV* 4 MG/ML 1 ML (4 MG) IV SLOW PU ONE (06:00)
[2019-05-02 06:30] LABS: ABS Eosinophils 0.1 10^3/ul (0-0.6); ABS Lymphocytes 0.6 10^3/ul (1.0-4.8); ABS Monocytes 0.4 10^3/ul (0-0.8); ABS Neutrophils 6.1 10^3/ul (1.5-7.7); Eosinophil % 1.2 %; Lymphocyte % 8.8 %
[2019-05-02] MEDS ORDERED: HYDROmorphone INJ1* 1 MG/ML SYRINGE ONE (07:13)
[2019-05-02] MEDS ORDERED: Rocuronium* 10 MG/ML VIAL ONE ×2 (07:14→10:00)
[2019-05-02] MEDS ORDERED: Midazolam* 1 MG/ML 2 ML VIAL (2 MG) ONE (07:14)
[2019-05-02] MEDS ORDERED: Propofol* 10 MG/ML 20 ML BTL ONE (07:14)
[2019-05-02] MEDS ORDERED: fentaNYL* 50 MCG/ML 2 ML VIAL (100 MCG VIAL) ONE (07:14)
[2019-05-02] MEDS ORDERED: DiMENhydriNATE IV* 50 MG/ML VIAL IV PUSH PRN (07:50)
[2019-05-02] MEDS ORDERED: HYDROmorphone INJ1* 1 MG/ML SYRINGE IV PRN (07:50)
[2019-05-02] MEDS ORDERED: fentaNYL* 50 MCG/ML 2 ML VIAL (100 MCG VIAL) IV PRN (07:50)
[2019-05-02] MEDS ORDERED: Ketorolac INJ* 30 MG/ML 1 ML VIAL IV PRN (07:50)
[2019-05-02] MEDS ORDERED: Naloxone* 0.4 MG/ML 1 ML VIAL IV PRN (07:50)
[2019-05-02] MEDS ORDERED: ceFAZolin 2 GM in NS PREMIX(*) 2 GM/100 ML BAG IVPB ONE (08:08)
--- NOTE | 2019-05-02 08:11 | PN ---
Progress Note - Progress Note Date of Service: 05/02/19 Note: She has a displaced right fifth metacarpal fracture and a nondisplaced right third metacarpal fracture. I will evaluate both under flouroscopy at the time of surgery. The plan is for closed versus open reduction and internal fixation of the right fifth metacarpal fracture and other metacarpal fractures as needed.
[2019-05-02] MEDS ORDERED: Dexamethasone IV* 4 MG/ML 1 ML (4 MG) ONE (09:56)
--- NOTE | 2019-05-02 10:13 | CONS ---
ORTHOPEDIC CONSULTATION NOTE: DATE OF CONSULT: 05/02/19 ATTENDING PHYSICIAN: Delores Guardado MD Thank you for this orthopedic consultation. CHIEF COMPLAINT: Right hand pain, right hip pain. HISTORY OF PRESENT ILLNESS: Ms. Dove is a 53-year-old female who was thrown from a horse at appr oximately 8 p.m. on 04/30/19. She was brought to the emergency room. She had 10/10 pain in the righ t hand and right hip. She had inability to stand or walk because of the pain. She was found to have right hand metacarpal fractures as well as displaced fright femoral neck fracture. The patient was admitted to the hospitalist service for medical optimization. Orthopedics was contact ed approximately noon on 05/01/19 for the fractures. The patient was seen immediately by our orthope dic Grace ALAS for orthopedic consultation. She wished to proceed with surgery. I then had a phone conversation with her on 05/01/19 discussing the risks of surgery and she wished to proceed. Lorna durham scheduled her for next available operating room on 05/02/19. PAST MEDICAL HISTORY: Hypothyroidism, rheumatoid arthritis. PAST SURGICAL HISTORY: Ear tubes, ectopic pregnancies x2 surgery. HOME MEDICATIONS: [place] Thyroid 30 mg p.o. daily. ALLERGIES: No known drug allergies. No known latex allergy. FAMILY HISTORY: Maternal AFib and valvular disorder. Paternal diabetes. SOCIAL HISTORY: The patient lives with the roommate. She is not . Her daughter, Saqib rios would be her healthcare proxy. No tobacco or recreational drugs. Minimal alcohol. Normally extr trevor active with horseback riding, jogging. She is an independent ambulator. REVIEW OF SYSTEMS: Fourteen systems were reviewed with the patient today. Positive for right hand pa in, right hip pain. She denies pain in muscles or joints elsewhere. Denies head trauma, loss of con sciousness. Denies fever, chills, chest pain, or shortness of breath, nausea, vomiting, headache, or dizziness. Otherwise, the patient reports review of systems is negative or not relevant. PHYSICAL EXAM: Vitals: Temperature 98.4, pulse of 75, blood pressure 103/55. General: The patient is a well-nourished female, in no apparent distress. Alert and oriented x3. Pleasant mood, appropri ate affect. Gait: The patient's gait is not assessed. HEENT: Atraumatic, normocephalic. Pupils e qual and reactive to light. Neck: Trachea midline. Neck: Supple. Heart: S1, S2. No audible mur murs, rubs or gallops. Lungs: Clear to auscultations in all lung [place]. Abdomen: Soft, nontender, nondistended. Bowel sounds in 4 quadrants. Bilateral upper extremities: The patient has a splint on the right hand and ulnar gutters split. She can move that thumb and index finger. She moves the shoulders bilaterally without any pain. She has full range of motion of the elbow without any pain. Left hand has no pain with full range of motion and 5/5 performance consultant strength. 2+ palpable radial pulse. Ri ght lower extremity has pain with any rotation of the hip. She has a soft thigh, although there is s ome swelling. Skin is intact. No abrasions or open wounds distally. She demonstrates dorsiflexion and plantarflexion, EHL, FHL. She has baseline patchy decreased sensation in her foot, which she rep orts is her baseline for years. 2+ palpable DP pulse. Left lower extremity: She can flex at the hi p and knee without any pain. No bony tenderness to palpation. Skin is intact. No abrasions or open wounds. She has 5/5 ankle, dorsiflexion, plantarflexion, EHL. She has a decreased patchy sensation around the foot, which is her baseline for several years. 2+ palpable DP pulse. DIAGNOSTIC STUDIES/LAB DATA: Radiograph: Multiple radiographs of the right hip show a displaced fem oral neck fracture. There is a dysplastic shallow acetabulum with minimal degenerative changes. Rig ht hand shows nondisplaced fracture of the third metacarpal and a displaced angulated fracture of the fifth metacarpal. Labs: White blood cells 7.3, hematocrit 37, platelets 127. INR 1.19. Sodium 134, potassium 3.8, BU N/creatinine 14/0.82. ASSESSMENT AND PLAN: Ms. Dove is a 53-year-old female status post fall from a horse. The patien t and I discussed her fractures. She understands both operative and nonoperative treatment options. We discussed open reduction, internal fixation of the hip as well as hemiarthroplasty and total hip arthroplasty. We discussed different orthopedic evidence based medicine and she would like to procee d with total hip arthroplasty. She will also have open reduction, internal fixation versus close red uction percutaneous pinning up of metacarpal fracture versus fractures with Dr. Tobar. She is n.p.o. now and on bedrest. She was taken to the OR today this morning for the first available OR for the right total hip arthroplasty and right hand metacarpal fracture open reduction internal f ixation versus closed reduction and percutaneous pin fixation. The patient's right hand and right hip are marked. Informed consent is signed and placed in the miley t. We did discuss the risks of surgery. She understands they include, but are not limited to bleedi ng, infection, damage to nearby structures, continued pain, need for further surgery, intraoperative fractures, nerve palsy, hardware failure or loosening, dislocation, leg length discrepancies, stroke, heart attack, blood clot and . She wishes to proceed. Thank you for this orthopedic consultation. [id number]/[facility] #: [id number]
[2019-05-02 11:13] LABS: Urine Appearance Clear; Urine Bilirubin Negative (Negative); Urine Blood Negative (Negative); Urine Color Yellow; Urine Glucose Negative (Negative); Urine Ketones 1+ (Negative); Urine Nitrite Negative (Negative); Urine Protein Negative (Negative); Urine Specific Gravity 1.019 (1.010-1.030); Urine Urobilinogen Negative (Negative)
--- NOTE | 2019-05-02 11:13 | OP ---
Operative Report - Blank - Operative Report Date of Operation: 05/02/19 Note: SANDY RANKIN 1965 Date Of Surgery: 05/02/19 Delores Guardado MD Senior Net Application Developer: Jania ALAS did help throughout the procedure with preparation of the hip, wound retraction, manipulation of the hip, and wound closure. Anesthesiologist: Jania Márquez MD Anesthesia Type: General Preoperative Diagnosis: Right displaced femoral neck fracture of the hip Postoperative Diagnosis: As above Procedure Performed: Right Total Hip Arthroplasty Complications: None Specimen: Femoral head and acetabular reamings sent to pathology. Hardware used: This is uncemented Isela total hip arthroplasty hardware for the femur a size 4 accolade II 132 neck angle femoral component, for the acetabulum a size 50D trident II tritanium cluster hole shell with two 15 mm screws, for the insert a size 32D trident x3 polyethylene insert, and for the femoral head a size 32 + 4 ceramic biolox V40 femoral head. Brief history/Indication: SANDY RANKIN had a fall off a horse in the evening of 04/30/19. She was found to have a closed comminuted displaced right femoral neck fracture. She was given different operative options and elected to proceed with a right total hip arthroplasty. She understood the risks of surgery included but were not limited to: bleeding, infection, damage to nearby structures, intraoperative fracture, nerve palsy, failure of the hardware, early loosening, stiffness or loss of motion, dislocation, leg length discrepancy, anesthesia complications, stroke, heart attack, blood clot and . She wished to proceed. Intra-Operative findings: Intraoperatively the patient was noted to have a completely displaced and comminuted femoral neck fracture. 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 Her posterior acetabular wall was quite minimal and thin. Description of the Procedure: SANDY RANKIN was identified in the preanesthesia unit. Her right hip was marked as the correct operative side. Informed consent was signed and placed in the chart. The patient was taken to the operating room and placed under anesthesia without complication. A patterson catheter was placed. The patient was placed on the peg board with all bony prominences well padded. The right lower extremity was prepped and draped in the usual sterile fashion. Preoperative time -out was made to correctly identify the patient, side and site. Appropriate intraoperative antibiotics were given within one hour of incision. A standard posterior incision was made and carried sharply down to the lateral fascia. A new 10 blade was used to make an incision in the fascia in line with the skin incision. A charnley retractor was placed. The piriformis and conjoined tendons were identified and elevated off the posterolateral femur using electrocautery. These were tagged with number 5 Ethibond. Next electrocautery was used to make a posterolateral capsular flap and this was tagged with number 5 Ethibonds. The proximal femur was presented anteriorly and the oscillating saw was used to make the femoral neck clean-up cut. The femoral head was carefully removed. The femur was retracted anteriorly and the acetabular retractors were placed. Long-handled knife was used to sharply remove any remaining labrum from the acetabular rim. The acetabulum was sequentially reamed up to a size 50. A bleeding subchondral bone bed was obtained. A trial liner was placed and had excellent fit and stability. A 50D trident II tritanium cup with two 15 mm screws was placed and had excellent stability with appropriate anteversion and abduction angle. A size 32D polyethylene liner was impacted into the acetabular shell. The liner was checked for stability and was stable. Next attention was turned to preparation of the femoral canal. A canal finder was used to enter the proximal femur. The femoral canal was sequentially broached up to a size 4 femoral broach trial. A trial neck and 32 + 4 trial femoral head was chosen. Lesser trochanter to center of the femoral head measurement was satisfactory. The hip was reduced and taken through a range of motion. The hip was stable in all positions with good soft tissue tension and appropriate leg lengths. The hip was dislocated and all trials were removed. The final implant chosen was a accolade II size 4 with 132 neck angle. This stem was impacted into the femoral canal without difficulty. The stem was stable with appropriate anteversion. The femoral head chosen was a 32 + 4 ceramic head. The head was impacted onto the femoral neck without difficulty. The final lesser trochanter to center of the femoral head measurement was satisfactory. The hip was reduced and taken through a range of motion. The hip was stable in all positions with good soft tissue tension and appropriate leg lengths. The hip was copiously irrigated with sterile saline. The previously tagged capsule and tendons were repaired to the posterolateral femur through two trochanteric drill holes. The lateral fascia layer was closed using number 1 vicryls. The rest of the incision was closed in a layered fashion using 0 and 2-0 vicryls. The skin was closed using 3-0 monocryl suture and Dermabond. Sterile adaptic, 4x4s and paper tape was used to cover the incision. The patients anesthesia was reversed without difficulty. She was taken to the PACU in stable condition. Intended weight-bearing will be as tolerated with posterior hip precautions.
[2019-05-02] MEDS ORDERED: EPHEDrine (Pressors)* 50 MG/ML VIAL ONE (11:32)
[2019-05-02] MEDS ORDERED: Ondansetron INJ* 2 MG/ML VIAL ONE (11:57)
[2019-05-02] MEDS ORDERED: Glycopyrrolate IV* 0.2 MG/ML 1 ML VIAL ONE (11:58)
[2019-05-02] MEDS ORDERED: Neostigmine Methylsulfate* 3 MG/3 ML SYRINGE ONE (11:58)
[2019-05-02] MEDS ORDERED: Bupivacaine 0.25% SDV PF* 10 ML VIAL INJ ONE (12:00)
[2019-05-02] MEDS ORDERED: DiMENhydriNATE IV* 50 MG/ML VIAL ONE (12:30)
[2019-05-02] MEDS ORDERED: Ketorolac INJ* 30 MG/ML 1 ML VIAL ONE (12:58)
[2019-05-02] MEDS: Docusate CAP* 100 MG PO SCH ×2 (14:22→20:33)
[2019-05-02] MEDS: THYROID PO SCH (14:22)
--- NOTE | 2019-05-02 14:26 | OP ---
DATE OF OPERATION: 05/02/19 - ROOM #346 DATE OF : 61. SURGEON: Benjamín Tobar MD. LATHE WINDER: EVETTE Roger. An anesthesiologists' assistant was needed for the procedure to aid in positioning of the hand, while I do the instrumentation. ANESTHESIOLOGIST: Dr. Márquez. ANESTHESIA: General. PRE-OP DIAGNOSES: 1. Right displaced fifth metacarpal middle of the distal third shaft fracture. 2. Minimally displaced right third metacarpal fracture. POST-OP DIAGNOSES: 1. Right displaced fifth metacarpal middle of the distal third shaft fracture. 2. Minimally displaced right third metacarpal fracture. OPERATIVE PROCEDURE: 1. Closed reduction and percutaneous fixation of right fifth metacarpal shaft fracture. 2. Closed treatment of right third metacarpal shaft fracture. INDICATIONS: Magalis is 53 years old. She has a displaced femoral neck subcapital fracture. Immediately prior to my procedure she underwent right total hip arthroplasty by Dr. Guardado. I then came in after she concluded that to stabilize her metacarpal bone in the reduced position. I did talk to her preoperatively she understands the risks of malunion, nonunion , hardware failure, pin tract infection amongst others. ESTIMATED BLOOD LOSS: 1 mL. COMPLICATIONS: None. FINDINGS: See above and below. DESCRIPTION OF PROCEDURE: Magalis was seen in preoperative holding area. The correct side, site and procedure were identified. We came back to the operating room. The arm was prepped and draped in the usual fashion and a time- out was performed. The arm was exsanguinated with the Esmarch and the tourniquet was inflated to 250 mmHg. I then made a 3 mm incision proximal to the base of the fifth metacarpal in the ulnar midaxial line. I bluntly spread down with the mosquitos and then used a larger Steinmann pin to open up a unicortical window on the base of the fifth metacarpal. I then bent a larger diameter K-wire and placed on the T-handle russel. I then made a cortical window proximally and advanced over the fracture site and then closed reduced the fracture and passed the wire across the fracture up into the metacarpal head. The fracture was held in the reduced position. The rotation was very nice. The alignment in the coronal and sagittal plane was certainly acceptable. I irrigated up the wound. I placed one 4-0 nylon stitch around the wire. The pin was bent and clipped. The 0.25% plain Marcaine was infiltrated. Patient was dressed with Xeroform, 4x4s, sterile Webril, and then a short-arm splint after the finger tips involving both dorsal and volar plaster slabs was applied. Tourniquet was deflated. She was taken to the recovery room in stable condition. Given that the third metacarpal fracture was not displaced and this was confirmed on mini C-arm fluoroscopic imaging. No additional fixation was applied there and decision was made to treat the third metacarpal fracture closed. [id number]/CPS #: [id number] JOELLE
[2019-05-02] MEDS: oxyCODONE TAB* 5 MG TAB PO PRN ×2 (16:38→22:38)
[2019-05-02] MEDS: ceFAZolin* 2 GM in NS 100 MLS Q8H (Pharmacy Admix) IVPB SCH (16:40)
--- NOTE | 2019-05-02 18:00 | PN ---
Subjective Date of Service: 05/02/19 Interval History: Pt seen post-op in her room. She is tired. She notes "a little pain" in the R hip, no pain in R hand, and occasional pain in L hand, due to a recent sprain injury. She believes pain is well controlled with medications. She is concerned about discharge to home, as she has many stairs to climb to get inside. She denies CP, SOB, abd pain, n/v/d. Objective Active Medications: Acetaminophen (Tylenol Tab*) 650 mg PO Q4H PRN Apixaban (Eliquis*) 2.5 mg PO BID LUPIS Cyclobenzaprine HCl (Flexeril Tab*) 10 mg PO TID PRN Docusate Sodium (Colace Cap*) 100 mg PO BID LUPIS Hydromorphone HCl (Dilaudid Inj1s*) 1 mg IV SLOW PU Q3H PRN Lactated Ringer's (Lactated Ringers 1000 Ml Bag*) 1,000 mls @ 125 mls/hr IV PER RATE LUPIS Cefazolin Sodium 2 gm/ Sodium (Chloride) 100 mls @ 200 mls/hr IVPB Q8H LUPIS Magnesium Hydroxide (Milk Of Magnesia Liq*) 30 ml PO BID PRN Nft: [place] Thyroid (1 Tab) 1 tab PO DAILY LUPIS Oxycodone HCl (Roxycodone Tab*) 5 mg PO Q6H PRN Oxycodone HCl (Roxycodone Tab*) 10 mg PO Q6H PRN Oxycodone/Acetaminophen (Percocet 5/325 Tab*) 1 tab PO Q4H PRN Polyethylene Glycol/Electrolytes (Miralax*) 17 gm PO DAILY PRN Senna (Senokot Tab*) 1 tab PO BEDTIME PRN Vital Signs: Temp Pulse Resp BP Pulse Ox 98.6 F 71 16 102/52 95 05/02/19 17:50 05/02/19 17:50 05/02/19 17:50 05/02/19 17:50 05/02/19 17:50 Oxygen Devices in Use Now: Nasal Cannula Appearance: Pt is laying in bed, notes she feels groggy. She is appropriate, cooperative, in no acute distress. Eyes: No Scleral Icterus, PERRLA Ears/Nose/Mouth/Throat: NL Teeth, Lips, Gums, Clear Oropharnyx, Mucous Membranes Moist Neck: NL Appearance and Movements; NL JVP, Trachea Midline Respiratory: Symmetrical Chest Expansion and Respiratory Effort, Clear to Auscultation Cardiovascular: NL Sounds; No Murmurs; No JVD, RRR, No Edema Abdominal: NL Sounds; No Tenderness; No Distention, No Hepatosplenomegaly Extremities: No Edema, No Clubbing, Cyanosis, - - RUE with CDI dsg. RLE with dressing to R lateral hip, CDI. Sensation, pulses intact distally. Neurological: Alert and Oriented x 3 Result Diagrams: 05/02/19 05:34 05/02/19 05:34 Additional Lab and Data: Laboratory Results - last 24 hr 05/01/19 05/01/19 05/01/19 01:59 01:59 01:59 WBC 10.8 RBC 4.37 Hgb 13.3 Hct 38 MCV 86 MCH 30 MCHC 35 RDW 14 Plt Count 166 MPV 8.4 Neut % (Auto) 80.1 Lymph % (Auto) 12.7 [place] % (Auto) 6.5 Eos % (Auto) 0.2 Baso % (Auto) 0.5 Absolute Neuts (auto) 8.6 H Absolute Lymphs (auto) 1.4 Absolute Monos (auto) 0.7 Absolute Eos (auto) 0.0 Absolute Basos (auto) 0.1 Absolute Nucleated RBC 0.0 Nucleated RBC % 0.0 INR (Anticoag Therapy) 0.99 Sodium 137 Potassium 3.6 Chloride 106 Carbon Dioxide 26 Anion Gap 5 BUN 17 Creatinine 0.95 Est GFR ( Amer) 73.9 Est GFR (Non-Af Amer) 61.1 BUN/Creatinine Ratio 17.9 Glucose 113 H Calcium 9.0 Microbiology and Other Data: . Assess/Plan/Problems-Billing Assessment: 53 yr old female with pmh of hypothyroid and RA; who presented to ED after a fall from a horse which resulted in right femoral neck fx, R 5th metacarpal fx both requiring surgical intervention 05/02/2018. - Patient Problems (1) Status post total hip replacement, right Comment: -POD0 -Management per ortho team (2) Closed right hand fracture Comment: -POD0 closed reduction R 5th metacarpal shaft fx, R 3rd metacarpal shaft fx -Management per ortho team (3) Hypothyroid Comment: - Cont Amour Thyroid - TSH wnl (4) DVT prophylaxis Comment: -Apixaban per ortho Status and Disposition: OR 05/02/2019. Discharge per ortho recommendations.
[2019-05-02] MEDS: Acetaminophen TAB* 325 MG PO PRN (20:33)
[2019-05-02] MEDS: Lactated Ringers 1000 ML Bag* 1,000 ML IV SCH (22:32)
[2019-05-03] MEDS: ceFAZolin* 2 GM in NS 100 MLS Q8H (Pharmacy Admix) IVPB SCH ×2 (00:59→09:08)
[2019-05-03] MEDS: oxyCODONE TAB* 5 MG TAB PO PRN ×2 (03:23→20:44)
[2019-05-03 05:44] LABS: Hematocrit 28 % (35-47); Hemoglobin 9.5 g/dL (12.0-16.0); Mean Corpuscular HGB Conc 35 g/dL (31-36); Mean Corpuscular Hemoglobin 30 pg (27-31); Mean Corpuscular Volume 87 fL (80-97); Mean Platelet Volume 8.1 fL (7.4-10.4); Platelet Count 104 10^3/uL (150-450); Red Blood Count 3.16 10^6 /uL (3.70-4.87); Red Cell Distribution Width 14 % (10-15); White Blood Count 6.4 10^3/uL (3.5-10.8)
[2019-05-03 06:02] LABS: BUN/Creatinine Ratio 16.4 (8-20); EGFR African American 110.6 (>60); EGFR Non-African American 91.4 (>60); Potassium 4.2 mmol/L (3.5-5.0)
[2019-05-03] MEDS: oxyCODONE/Acetamin 5/325 MG* TAB PO PRN ×3 (06:38→15:44)
[2019-05-03] MEDS: Lactated Ringers 1000 ML Bag* 1,000 ML IV SCH (07:47)
[2019-05-03] MEDS ORDERED: THYROID 65 MG PO SCH (09:00)
[2019-05-03] MEDS: Apixaban* 2.5 MG TAB PO SCH ×2 (09:08→20:44)
[2019-05-03] MEDS: Docusate CAP* 100 MG PO SCH ×2 (09:08→20:44)
--- NOTE | 2019-05-03 12:19 | PN ---
Progress Note - Progress Note Date of Service: 05/03/19 SOAP: Subjective: Pt resting comfortably in chair. Minimal complaint of pain. Denies CP, SOB, F/C. Vital Signs: Temp Pulse Resp BP Pulse Ox 98.9 F 93 18 93/56 95 05/03/19 11:43 05/03/19 11:43 05/03/19 11:45 05/03/19 11:43 05/03/19 11:43 Laboratory Last Values WBC 6.4 10^3/uL (3.5-10.8) 05/03/19 05:29 RBC 3.16 10^6 /uL (3.70-4.87) L 05/03/19 05:29 Hgb 9.5 g/dL (12.0-16.0) L 05/03/19 05:29 Hct 28 % (35-47) L 05/03/19 05:29 MCV 87 fL (80-97) 05/03/19 05:29 MCH 30 pg (27-31) 05/03/19 05:29 MCHC 35 g/dL (31-36) 05/03/19 05:29 RDW 14 % (10-15) 05/03/19 05:29 Plt Count 104 10^3/uL (150-450) L 05/03/19 05:29 MPV 8.1 fL (7.4-10.4) 05/03/19 05:29 Neut % (Auto) 83.5 % 05/02/19 05:34 Lymph % (Auto) 8.8 % 05/02/19 05:34 [place] % (Auto) 5.9 % 05/02/19 05:34 Eos % (Auto) 1.2 % 05/02/19 05:34 Baso % (Auto) 0.6 % 05/02/19 05:34 Absolute Neuts (auto) 6.1 10^3/ul (1.5-7.7) 05/02/19 05:34 Absolute Lymphs (auto) 0.6 10^3/ul (1.0-4.8) L 05/02/19 05:34 Absolute Monos (auto) 0.4 10^3/ul (0-0.8) 05/02/19 05:34 Absolute Eos (auto) 0.1 10^3/ul (0-0.6) 05/02/19 05:34 Absolute Basos (auto) 0.0 10^3/ul (0-0.2) 05/02/19 05:34 Absolute Nucleated RBC 0.0 10^3/ul 05/02/19 05:34 Immature Gran % 1.0 % (0-9) 05/02/19 05:34 Neutrophils % 82.0 % 05/02/19 05:34 Lymphocytes % 11.0 % 05/02/19 05:34 Monocytes % 4.0 % 05/02/19 05:34 Eosinophils % 2.0 % 05/02/19 05:34 Myelocytes % 1.0 % (0-1) 05/02/19 05:34 Nucleated RBC % 0.0 05/02/19 05:34 Normal RBC Morphology Normal (Normal) 05/02/19 05:34 INR (Anticoag Therapy) 1.19 (0.82-1.09) H 05/02/19 05:34 Sodium 135 mmol/L (135-145) 05/03/19 05:29 Potassium 4.2 mmol/L (3.5-5.0) 05/03/19 05:29 Chloride 104 mmol/L (101-111) 05/03/19 05:29 Carbon Dioxide 26 mmol/L (22-32) 05/03/19 05:29 Anion Gap 5 mmol/L (2-11) 05/03/19 05:29 BUN 11 mg/dL (6-24) 05/03/19 05:29 Creatinine 0.67 mg/dL (0.51-0.95) 05/03/19 05:29 Est GFR ( Amer) 110.6 (>60) 05/03/19 05:29 Est GFR (Non-Af Amer) 91.4 (>60) 05/03/19 05:29 BUN/Creatinine Ratio 16.4 (8-20) 05/03/19 05:29 Glucose 111 mg/dL (70-100) H 05/03/19 05:29 Calcium 8.0 mg/dL (8.6-10.3) L 05/03/19 05:29 TSH 4.92 mcIU/mL (0.34-5.60) 05/01/19 01:59 Urine Color Yellow 05/02/19 10:02 Urine Appearance Clear 05/02/19 10:02 Urine pH 6.0 (5-9) 05/02/19 10:02 Ur Specific [place] 1.019 (1.010-1.030) 05/02/19 10:02 Urine Protein Negative (Negative) 05/02/19 10:02 Urine Ketones 1+ (Negative) A 05/02/19 10:02 Urine Blood Negative (Negative) 05/02/19 10:02 Urine Nitrate Negative (Negative) 05/02/19 10:02 Urine Bilirubin Negative (Negative) 05/02/19 10:02 Urine Urobilinogen Negative (Negative) 05/02/19 10:02 Ur Leukocyte Esterase Negative (Negative) 05/02/19 10:02 Urine Glucose Negative (Negative) 05/02/19 10:02 Blood Type O Negative 05/01/19 01:55 Antibody Screen Negative 05/01/19 01:55 Objective: A&O x3, NAD, Dressing C/D/I, Splint C/D/I right UE, Calves soft and nontender, No edema, NVI distally. Assessment: 53 yo female s/p right BRITT for femoral neck fx, Closed reduction perc pinning right 5th MC fx POD #1 Plan: OOB, PT/OT WBAT right LE Pain control DVT prophylaxis - Eliquis D/C Planning - Will likely need STR placement, pt wants PMRU
[2019-05-03] MEDS: Cyclobenzaprine TAB* 10 MG PO PRN (12:59)
--- NOTE | 2019-05-03 15:57 | PN ---
Subjective Date of Service: 05/03/19 Interval History: Pt doing well. Pain is well controlled, stating she has rare pain in the R hand , and no pain currently in R hip. She does note that she had spasms today, but they were relieved with flexeril. She has been up to chair today. Pt had patterson removed approximately 1h ago, has yet to urinate. Last BM was 04/30. Pt denies CP, SOB, cough, fever, abd pain, n/v/d. Objective Active Medications: Acetaminophen (Tylenol Tab*) 650 mg PO Q4H PRN Apixaban (Eliquis*) 2.5 mg PO BID LUPIS Cyclobenzaprine HCl (Flexeril Tab*) 10 mg PO TID PRN Docusate Sodium (Colace Cap*) 100 mg PO BID LUPIS Hydromorphone HCl (Dilaudid Inj1s*) 1 mg IV SLOW PU Q3H PRN Lactated Ringer's (Lactated Ringers 1000 Ml Bag*) 1,000 mls @ 125 mls/hr IV PER RATE LUPIS Magnesium Hydroxide (Milk Of Magnesia Liq*) 30 ml PO BID PRN Pto Med: Nature (Thyroid 65 Mg) 1 tab PO DAILY@0600 LUPIS Oxycodone HCl (Roxycodone Tab*) 5 mg PO Q6H PRN Oxycodone HCl (Roxycodone Tab*) 10 mg PO Q6H PRN Oxycodone/Acetaminophen (Percocet 5/325 Tab*) 1 tab PO Q4H PRN Polyethylene Glycol/Electrolytes (Miralax*) 17 gm PO DAILY PRN Senna (Senokot Tab*) 1 tab PO BEDTIME PRN Vital Signs: Temp Pulse Resp BP Pulse Ox 99.1 F 88 18 102/51 96 05/03/19 15:32 05/03/19 15:32 05/03/19 15:46 05/03/19 15:32 05/03/19 15:32 Oxygen Devices in Use Now: Nasal Cannula Appearance: Pt is laying in bed with HOB elevated. She is somewhat drowsy, but responds appropriately and remains awake throughout visit. She is appropriate, cooperative, pleasant. Eyes: No Scleral Icterus, PERRLA Ears/Nose/Mouth/Throat: NL Teeth, Lips, Gums, Clear Oropharnyx, Mucous Membranes Moist Neck: NL Appearance and Movements; NL JVP, Trachea Midline Respiratory: Symmetrical Chest Expansion and Respiratory Effort, Clear to Auscultation Cardiovascular: NL Sounds; No Murmurs; No JVD, RRR, No Edema Abdominal: NL Sounds; No Tenderness; No Distention, No Hepatosplenomegaly Extremities: No Edema, No Clubbing, Cyanosis, - - Able to move all extremities. R hand with CDI dressing; R lateral hip with CDI dressing. Sensation, pedal pulses intact b/l. Neurological: Alert and Oriented x 3 Result Diagrams: 05/03/19 05:29 05/03/19 05:29 Additional Lab and Data: . Microbiology and Other Data: . Assess/Plan/Problems-Billing Assessment: 53 yr old female with pmh of hypothyroid and RA; who presented to ED after a fall from a horse which resulted in right femoral neck fx, R 5th metacarpal fx both requiring surgical intervention 05/02/2018. - Patient Problems (1) Status post total hip replacement, right Comment: -POD1 -Management per ortho team -WBAT -Concern about discharge to home; PMRU referral in (2) Closed right hand fracture Comment: -POD1 closed reduction R 5th metacarpal shaft fx, R 3rd metacarpal shaft fx -Management per ortho team (3) Hypothyroid Comment: - Cont Amour Thyroid - TSH wnl (4) DVT prophylaxis Comment: -Apixaban per ortho Status and Disposition: OR 05/02/2019. Discharge per ortho recommendations.
[2019-05-04] MEDS: Cyclobenzaprine TAB* 10 MG PO PRN ×2 (03:57→17:34)
[2019-05-04 05:23] LABS: Hematocrit 28 % (35-47)
[2019-05-04] MEDS: THYROID 65 MG PO SCH (05:52)
[2019-05-04] MEDS: oxyCODONE/Acetamin 5/325 MG* TAB PO PRN ×3 (05:52→19:23)
[2019-05-04] MEDS: Magnesium Hydroxide LIQ* 30 ML UDC PO PRN ×2 (05:55→17:34)
[2019-05-04] MEDS: Apixaban* 2.5 MG TAB PO SCH ×2 (08:18→19:23)
[2019-05-04] MEDS: Docusate CAP* 100 MG PO SCH ×2 (08:18→19:23)
--- NOTE | 2019-05-04 12:40 | PN ---
Progress Note - Progress Note Date of Service: 05/04/19 SOAP: Subjective: []Pt seen at bedside, her hip is sore but tolerable, RUE pain well controlled. Denies CP, SOB, dizziness, nausea. Tmax 101 with HR 103 overnight. Objective: []Gen: Appears well, NAD RUE: Splint CDI, no erythema proximal or distal. Able to f/e thumb, digit ROM restricted by splint. Sensation intact to light touch and capillary refill less thant two seconds distally RUE: Dressing changed, incision CDI, thigh soft, DF/PF intact, DP2+, sensation intact to light touch distally Calves supple and nontender without erythema, edema or palpable cords Assessment: []POD 2 s/p 1. Closed reduction and percutaneous fixation of right fifth metacarpal shaft fracture. Dr Tobar 2. Closed treatment of right third metacarpal shaft fracture. Dr Tobar 3. Right total hip arthroplasty sp R femoral neck fx. Dr Guardado Plan: []RLE: WBAT, posterior hip precautions, PT/OT RUE: Splint CDI, NWB, okay to use platform walker eliquis 2.5 mg po bid x 30 days post op PMRU referral in [place], monitor temp, HR, O2 Vital Signs Temp 99.6 F 05/04/19 11:36 Pulse 92 05/04/19 11:36 Resp 16 05/04/19 11:36 BP 95/54 05/04/19 11:36 Pulse Ox 93 05/04/19 11:36 Intake & Output 05/03/19 05/04/19 05/04/19 18:59 06:59 18:59 Intake Total 1702 800 120 Output Total 1575 1700 1100 Balance 127 -900 -980 Weight 153 lb 3.2 oz Intake: IV Fluids 882 LR 882 IVPB 110 ABX - CEFAZOLIN 110 Oral 710 800 120 Output: Urine 1200 1700 1100 [place] 375 Other: # Bowel Movements 0 Laboratory Last Values WBC 6.4 10^3/uL (3.5-10.8) 05/03/19 05:29 RBC 3.16 10^6 /uL (3.70-4.87) L 05/03/19 05:29 Hgb 10.0 g/dL (12.0-16.0) L 05/04/19 05:02 Hct 28 % (35-47) L 05/04/19 05:02 MCV 87 fL (80-97) 05/03/19 05:29 MCH 30 pg (27-31) 05/03/19 05:29 MCHC 35 g/dL (31-36) 05/03/19 05:29 RDW 14 % (10-15) 05/03/19 05:29 Plt Count 104 10^3/uL (150-450) L 05/03/19 05:29 MPV 8.1 fL (7.4-10.4) 05/03/19 05:29 Neut % (Auto) 83.5 % 05/02/19 05:34 Lymph % (Auto) 8.8 % 05/02/19 05:34 [place] % (Auto) 5.9 % 05/02/19 05:34 Eos % (Auto) 1.2 % 05/02/19 05:34 Baso % (Auto) 0.6 % 05/02/19 05:34 Absolute Neuts (auto) 6.1 10^3/ul (1.5-7.7) 05/02/19 05:34 Absolute Lymphs (auto) 0.6 10^3/ul (1.0-4.8) L 05/02/19 05:34 Absolute Monos (auto) 0.4 10^3/ul (0-0.8) 05/02/19 05:34 Absolute Eos (auto) 0.1 10^3/ul (0-0.6) 05/02/19 05:34 Absolute Basos (auto) 0.0 10^3/ul (0-0.2) 05/02/19 05:34 Absolute Nucleated RBC 0.0 10^3/ul 05/02/19 05:34 Immature Gran % 1.0 % (0-9) 05/02/19 05:34 Neutrophils % 82.0 % 05/02/19 05:34 Lymphocytes % 11.0 % 05/02/19 05:34 Monocytes % 4.0 % 05/02/19 05:34 Eosinophils % 2.0 % 05/02/19 05:34 Myelocytes % 1.0 % (0-1) 05/02/19 05:34 Nucleated RBC % 0.0 05/02/19 05:34 Normal RBC Morphology Normal (Normal) 05/02/19 05:34 INR (Anticoag Therapy) 1.19 (0.82-1.09) H 05/02/19 05:34 Sodium 135 mmol/L (135-145) 05/03/19 05:29 Potassium 4.2 mmol/L (3.5-5.0) 05/03/19 05:29 Chloride 104 mmol/L (101-111) 05/03/19 05:29 Carbon Dioxide 26 mmol/L (22-32) 05/03/19 05:29 Anion Gap 5 mmol/L (2-11) 05/03/19 05:29 BUN 11 mg/dL (6-24) 05/03/19 05:29 Creatinine 0.67 mg/dL (0.51-0.95) 05/03/19 05:29 Est GFR ( Amer) 110.6 (>60) 05/03/19 05:29 Est GFR (Non-Af Amer) 91.4 (>60) 05/03/19 05:29 BUN/Creatinine Ratio 16.4 (8-20) 05/03/19 05:29 Glucose 111 mg/dL (70-100) H 05/03/19 05:29 Calcium 8.0 mg/dL (8.6-10.3) L 05/03/19 05:29 TSH 4.92 mcIU/mL (0.34-5.60) 05/01/19 01:59 Urine Color Yellow 05/02/19 10:02 Urine Appearance Clear 05/02/19 10:02 Urine pH 6.0 (5-9) 05/02/19 10:02 Ur Specific [place] 1.019 (1.010-1.030) 05/02/19 10:02 Urine Protein Negative (Negative) 05/02/19 10:02 Urine Ketones 1+ (Negative) A 05/02/19 10:02 Urine Blood Negative (Negative) 05/02/19 10:02 Urine Nitrate Negative (Negative) 05/02/19 10:02 Urine Bilirubin Negative (Negative) 05/02/19 10:02 Urine Urobilinogen Negative (Negative) 05/02/19 10:02 Ur Leukocyte Esterase Negative (Negative) 05/02/19 10:02 Urine Glucose Negative (Negative) 05/02/19 10:02 Blood Type O Negative 05/01/19 01:55 Antibody Screen Negative 05/01/19 01:55
--- NOTE | 2019-05-04 19:02 | PN ---
Subjective Date of Service: 05/04/19 Interval History: Pt has intermittent overnight fevers; she states she has night sweats. She denies CP, SOB, cough, calf pain. She notes that she was up to urinate approximately every hour last night, which is more frequent than usualy. She denies dysuria, but admits to occasional retention. She states that her pain is fairly well controlled and she has been walking around the room. Objective Active Medications: Acetaminophen (Tylenol Tab*) 650 mg PO Q4H PRN Apixaban (Eliquis*) 2.5 mg PO BID LUPIS Cyclobenzaprine HCl (Flexeril Tab*) 10 mg PO TID PRN Docusate Sodium (Colace Cap*) 100 mg PO BID LUPIS Hydromorphone HCl (Dilaudid Inj1s*) 1 mg IV SLOW PU Q3H PRN Lactated Ringer's (Lactated Ringers 1000 Ml Bag*) 1,000 mls @ 125 mls/hr IV PER RATE LUPIS Magnesium Hydroxide (Milk Of Magnesia Liq*) 30 ml PO BID PRN Pto Med: Nature (Thyroid 65 Mg) 1 tab PO DAILY@0600 LUPIS Oxycodone HCl (Roxycodone Tab*) 5 mg PO Q6H PRN Oxycodone HCl (Roxycodone Tab*) 10 mg PO Q6H PRN Oxycodone/Acetaminophen (Percocet 5/325 Tab*) 1 tab PO Q4H PRN Polyethylene Glycol/Electrolytes (Miralax*) 17 gm PO DAILY PRN Senna (Senokot Tab*) 1 tab PO BEDTIME PRN Vital Signs: Temp Pulse Resp BP Pulse Ox 99.6 F 88 16 111/55 97 05/04/19 16:50 05/04/19 16:50 05/04/19 17:34 05/04/19 16:50 05/04/19 16:50 Oxygen Devices in Use Now: None Appearance: Pt is sitting in chair with LE elevated. She appears comfortable. She is cooperative, appropriate, and in no acute distress. Eyes: No Scleral Icterus, PERRLA Ears/Nose/Mouth/Throat: NL Teeth, Lips, Gums, Clear Oropharnyx, Mucous Membranes Moist Neck: NL Appearance and Movements; NL JVP, Trachea Midline Respiratory: Symmetrical Chest Expansion and Respiratory Effort, Clear to Auscultation Cardiovascular: NL Sounds; No Murmurs; No JVD, RRR, No Edema Abdominal: NL Sounds; No Tenderness; No Distention, No Hepatosplenomegaly Extremities: No Edema, No Clubbing, Cyanosis, - - RUE with CDI dressing. Cap refill < 2sec. R hip with CDI dressing. Pedal pulses intact; sensation intact. Neurological: Alert and Oriented x 3 Result Diagrams: 05/04/19 05:02 05/03/19 05:29 Additional Lab and Data: . Microbiology and Other Data: . Assess/Plan/Problems-Billing Assessment: 53 yr old female with pmh of hypothyroid and RA; who presented to ED after a fall from a horse which resulted in right femoral neck fx, R 5th metacarpal fx both requiring surgical intervention 05/02/2018. - Patient Problems (1) Status post total hip replacement, right Comment: -POD2 -Management per ortho team -RLE WBAT with posterior hip precautions -Concern about discharge to home; PMRU referral in (2) Closed right hand fracture Comment: -POD2 closed reduction R 5th metacarpal shaft fx, R 3rd metacarpal shaft fx -NWB; OK to use platform walker -Management per ortho team (3) Urinary frequency Comment: -Urinary frequency with occasionaly retention; night sweats -UA ordered (4) Hypothyroid Comment: - Cont Amour Thyroid - TSH wnl (5) DVT prophylaxis Comment: -Apixaban per ortho Status and Disposition: OR 05/02/2019. Discharge per ortho recommendations.
[2019-05-04 21:25] LABS: Urine Appearance Cloudy; Urine Bilirubin Negative (Negative); Urine Blood Negative (Negative); Urine Color Yellow; Urine Glucose Negative (Negative); Urine Ketones Negative (Negative); Urine Nitrite Negative (Negative); Urine Protein Negative (Negative); Urine Specific Gravity 1.011 (1.010-1.030); Urine Urobilinogen Negative (Negative)
[2019-05-04] MEDS: Polyethylene Glycol 3350* 17 GM PACKET PO PRN (21:39)
[2019-05-05] MEDS: oxyCODONE/Acetamin 5/325 MG* TAB PO PRN ×2 (01:43→09:21)
[2019-05-05 05:47] LABS: Hematocrit 29 % (35-47); Hemoglobin 9.8 g/dL (12.0-16.0); Mean Corpuscular HGB Conc 34 g/dL (31-36); Mean Corpuscular Hemoglobin 30 pg (27-31); Mean Corpuscular Volume 87 fL (80-97); Mean Platelet Volume 8.1 fL (7.4-10.4); Platelet Count 140 10^3/uL (150-450); Red Blood Count 3.28 10^6 /uL (3.70-4.87); Red Cell Distribution Width 14 % (10-15); White Blood Count 4.8 10^3/uL (3.5-10.8)
[2019-05-05] MEDS: THYROID 65 MG PO SCH (05:48)
[2019-05-05] MEDS: Cyclobenzaprine TAB* 10 MG PO PRN ×2 (05:48→20:27)
[2019-05-05] MEDS: Magnesium Hydroxide LIQ* 30 ML UDC PO PRN (05:53)
[2019-05-05 06:17] LABS: BUN/Creatinine Ratio 14.1 (8-20); Calcium 8.8 mg/dL (8.6-10.3); EGFR African American 116.6 (>60); EGFR Non-African American 96.3 (>60); Potassium 4.1 mmol/L (3.5-5.0)
[2019-05-05] MEDS ORDERED: Ondansetron ODT TAB* 4 MG PO PRN (09:16)
[2019-05-05] MEDS ORDERED: Bisacodyl SUPP* 10 MG SUPP PR PRN (09:16)
[2019-05-05] MEDS: Polyethylene Glycol 3350* 17 GM PACKET PO PRN (09:21)
[2019-05-05] MEDS: Apixaban* 2.5 MG TAB PO SCH ×2 (09:21→20:27)
[2019-05-05] MEDS: Docusate CAP* 100 MG PO SCH ×2 (09:21→20:27)
--- NOTE | 2019-05-05 12:14 | PN ---
Progress Note - Progress Note Date of Service: 05/05/19 SOAP: Subjective: []Pt seen at bedside, she is comfortable. She was nauseous this morning which has improved. Denies CP, SOB, dizziness. Objective: []Gen: Appears well, NAD RUE: Splint CDI, no erythema proximal or distal. Able to f/e thumb, digit ROM restricted by splint. Sensation intact to light touch and capillary refill less than two seconds distally RUE: Dressing changed, incision CDI, thigh soft, DF/PF intact, DP2+, sensation intact to light touch distally Calves supple and nontender without erythema, edema or palpable cords Assessment: []POD 3 s/p 1. Closed reduction and percutaneous fixation of right fifth metacarpal shaft fracture. Dr Tobar 2. Closed treatment of right third metacarpal shaft fracture. Dr Tobar 3. Right total hip arthroplasty s/p R femoral neck fx. Dr Guardado Plan: []RLE: WBAT, posterior hip precautions, PT/OT RUE: Splint CDI, NWB, okay to use platform walker eliquis 2.5 mg po bid x 30 days post op PMRU referral in, awaiting insurance auth Encourage IS, negative UA Vital Signs Temp 98.7 F 05/05/19 11:19 Pulse 81 05/05/19 11:19 Resp 16 05/05/19 11:19 BP 95/51 05/05/19 11:19 Pulse Ox 93 05/05/19 11:19 Intake & Output 05/04/19 05/05/19 05/05/19 18:59 06:59 18:59 Intake Total 120 380 220 Output Total 1900 1450 300 Balance -1780 -1070 -80 Weight 168 lb Intake: Oral 120 380 220 Output: Urine 1900 1450 300 Other: # Bowel Movements 0 Laboratory Last Values WBC 4.8 10^3/uL (3.5-10.8) 05/05/19 05:25 RBC 3.28 10^6 /uL (3.70-4.87) L 05/05/19 05:25 Hgb 9.8 g/dL (12.0-16.0) L 05/05/19 05:25 Hct 29 % (35-47) L 05/05/19 05:25 MCV 87 fL (80-97) 05/05/19 05:25 MCH 30 pg (27-31) 05/05/19 05:25 MCHC 34 g/dL (31-36) 05/05/19 05:25 RDW 14 % (10-15) 05/05/19 05:25 Plt Count 140 10^3/uL (150-450) L 05/05/19 05:25 MPV 8.1 fL (7.4-10.4) 05/05/19 05:25 Neut % (Auto) 83.5 % 05/02/19 05:34 Lymph % (Auto) 8.8 % 05/02/19 05:34 [place] % (Auto) 5.9 % 05/02/19 05:34 Eos % (Auto) 1.2 % 05/02/19 05:34 Baso % (Auto) 0.6 % 05/02/19 05:34 Absolute Neuts (auto) 6.1 10^3/ul (1.5-7.7) 05/02/19 05:34 Absolute Lymphs (auto) 0.6 10^3/ul (1.0-4.8) L 05/02/19 05:34 Absolute Monos (auto) 0.4 10^3/ul (0-0.8) 05/02/19 05:34 Absolute Eos (auto) 0.1 10^3/ul (0-0.6) 05/02/19 05:34 Absolute Basos (auto) 0.0 10^3/ul (0-0.2) 05/02/19 05:34 Absolute Nucleated RBC 0.0 10^3/ul 05/02/19 05:34 Immature Gran % 1.0 % (0-9) 05/02/19 05:34 Neutrophils % 82.0 % 05/02/19 05:34 Lymphocytes % 11.0 % 05/02/19 05:34 Monocytes % 4.0 % 05/02/19 05:34 Eosinophils % 2.0 % 05/02/19 05:34 Myelocytes % 1.0 % (0-1) 05/02/19 05:34 Nucleated RBC % 0.0 05/02/19 05:34 Normal RBC Morphology Normal (Normal) 05/02/19 05:34 Hem Pathologist Commnt 05/02/19 05:34 INR (Anticoag Therapy) 1.19 (0.82-1.09) H 05/02/19 05:34 Sodium 136 mmol/L (135-145) 05/05/19 05:25 Potassium 4.1 mmol/L (3.5-5.0) 05/05/19 05:25 Chloride 103 mmol/L (101-111) 05/05/19 05:25 Carbon Dioxide 28 mmol/L (22-32) 05/05/19 05:25 Anion Gap 5 mmol/L (2-11) 05/05/19 05:25 BUN 9 mg/dL (6-24) 05/05/19 05:25 Creatinine 0.64 mg/dL (0.51-0.95) 05/05/19 05:25 Est GFR ( Amer) 116.6 (>60) 05/05/19 05:25 Est GFR (Non-Af Amer) 96.3 (>60) 05/05/19 05:25 BUN/Creatinine Ratio 14.1 (8-20) 05/05/19 05:25 Glucose 104 mg/dL (70-100) H 05/05/19 05:25 Calcium 8.8 mg/dL (8.6-10.3) 05/05/19 05:25 TSH 4.92 mcIU/mL (0.34-5.60) 05/01/19 01:59 Urine Color Yellow 05/04/19 21:08 Urine Appearance Cloudy 05/04/19 21:08 Urine pH 9.0 (5-9) 05/04/19 21:08 Ur Specific [place] 1.011 (1.010-1.030) 05/04/19 21:08 Urine Protein Negative (Negative) 05/04/19 21:08 Urine Ketones Negative (Negative) 05/04/19 21:08 Urine Blood Negative (Negative) 05/04/19 21:08 Urine Nitrate Negative (Negative) 05/04/19 21:08 Urine Bilirubin Negative (Negative) 05/04/19 21:08 Urine Urobilinogen Negative (Negative) 05/04/19 21:08 Ur Leukocyte Esterase Negative (Negative) 05/04/19 21:08 Urine Glucose Negative (Negative) 05/04/19 21:08 Blood Type O Negative 05/01/19 01:55 Antibody Screen Negative 05/01/19 01:55
[2019-05-05 16:05] LABS: Albumin/Globulin Ratio 1.2 (1-3); Globulin 2.5 g/dL (2-4); Indirect Bilirubin 0.7 mg/dL (0.3-1.0); Total Bilirubin 0.8 mg/dL (0.2-1.0); Total Protein 5.5 g/dL (6.4-8.9)
[2019-05-05] MEDS: oxyCODONE TAB* 5 MG TAB PO PRN (18:33)
--- NOTE | 2019-05-05 19:46 | PN ---
Subjective Date of Service: 05/05/19 Interval History: Resting in recliner on assessment. Reports pain is well controlled with current regime. Concerned as she has not had a BM since 04/30. Reports she is passing flatus. Denies nausea, vomiting, abd pain. Reports visiting friends were concerned that hands looked "yellow". Denies abd pain. Denies fever, chills, sob , cp. Objective Active Medications: Acetaminophen (Tylenol Tab*) 650 mg PO Q4H PRN PRN Reason: PAIN - MILD Last Admin: 05/02/19 20:33 Dose: 650 mg Apixaban (Eliquis*) 2.5 mg PO BID [facility] Last Admin: 05/05/19 09:21 Dose: 2.5 mg Bisacodyl (Dulcolax Supp*) 10 mg [place] DAILY PRN PRN Reason: CONSTIPATION Cyclobenzaprine HCl (Flexeril Tab*) 10 mg PO TID PRN PRN Reason: SPASMS Last Admin: 05/05/19 05:48 Dose: 10 mg Docusate Sodium (Colace Cap*) 100 mg PO BID [facility] Last Admin: 05/05/19 09:21 Dose: 100 mg Hydromorphone HCl (Dilaudid Inj1s*) 1 mg IV SLOW PU Q3H PRN PRN Reason: PAIN - SEVERE Last Admin: 05/02/19 03:07 Dose: 1 mg Lactated Ringer's (Lactated Ringers 1000 Ml Bag*) 1,000 mls @ 125 mls/hr IV PER RATE [facility] Last Admin: 05/03/19 07:47 Dose: 125 mls/hr Magnesium Hydroxide (Milk Of Magnesia Liq*) 30 ml PO BID PRN PRN Reason: CONSTIPATION Last Admin: 05/05/19 05:53 Dose: 30 ml Pto Med: Nature (Thyroid 65 Mg) 1 tab PO DAILY@0600 [facility] Last Admin: 05/05/19 05:48 Dose: 1 tab Ondansetron HCl (Zofran Odt Tab*) 4 mg PO Q6H PRN PRN Reason: NAUSEA Last Admin: 05/05/19 09:25 Dose: 4 mg Oxycodone HCl (Roxycodone Tab*) 5 mg PO Q6H PRN PRN Reason: PAIN - MODERATE Last Admin: 05/05/19 18:33 Dose: 5 mg Oxycodone HCl (Roxycodone Tab*) 10 mg PO Q6H PRN PRN Reason: PAIN - SEVERE Last Admin: 05/02/19 22:38 Dose: 10 mg Oxycodone/Acetaminophen (Percocet 5/325 Tab*) 1 tab PO Q4H PRN PRN Reason: PAIN - MILD Last Admin: 05/05/19 09:21 Dose: 1 tab Polyethylene Glycol/Electrolytes (Miralax*) 17 gm PO DAILY PRN PRN Reason: CONSTIPATION Last Admin: 05/05/19 09:21 Dose: 17 gm Senna (Senokot Tab*) 1 tab PO BEDTIME PRN PRN Reason: CONSTIPATION Vital Signs - 8 hr 05/05/19 05/05/19 05/05/19 15:30 16:00 18:33 Temperature 98.7 F Pulse Rate 80 Respiratory 18 16 Rate Blood Pressure 107/61 (mmHg) O2 Sat by Pulse 98 98 Oximetry Oxygen Devices in Use Now: None Appearance: Comfortable, NAD Eyes: No Scleral Icterus Ears/Nose/Mouth/Throat: Clear Oropharnyx, Mucous Membranes Moist Neck: NL Appearance and Movements; NL JVP Respiratory: Symmetrical Chest Expansion and Respiratory Effort, Clear to Auscultation Cardiovascular: NL Sounds; No Murmurs; No JVD, RRR, No Edema Abdominal: NL Sounds; No Tenderness; No Distention Lymphatic: No Cervical Adenopathy Extremities: No Edema Skin: No Rash or Ulcers Neurological: Alert and Oriented x 3 Nutrition: Taking PO's Result Diagrams: 05/05/19 05:25 05/05/19 05:25 Additional Lab and Data: Laboratory Results - last 24 hr 05/04/19 05/05/19 05/05/19 21:08 05:25 05:25 WBC 4.8 RBC 3.28 L Hgb 9.8 L Hct 29 L MCV 87 MCH 30 MCHC 34 RDW 14 Plt Count 140 L MPV 8.1 Sodium 136 Potassium 4.1 Chloride 103 Carbon Dioxide 28 Anion Gap 5 BUN 9 Creatinine 0.64 Est GFR ( Amer) 116.6 Est GFR (Non-Af Amer) 96.3 BUN/Creatinine Ratio 14.1 Glucose 104 H Calcium 8.8 Total Bilirubin 0.80 Direct Bilirubin 0.10 Indirect Bilirubin 0.7 AST 66 H ALT 107 H Alkaline Phosphatase 94 Total Protein 5.5 L Albumin 3.0 L Globulin 2.5 Albumin/Globulin Ratio 1.2 Urine Color Yellow Urine Appearance Cloudy Urine pH 9.0 Ur Specific [place] 1.011 Urine Protein Negative Urine Ketones Negative Urine Blood Negative Urine Nitrate Negative Urine Bilirubin Negative Urine Urobilinogen Negative Ur Leukocyte Esterase Negative Urine Glucose Negative Microbiology and Other Data: . Assess/Plan/Problems-Billing Assessment: 53 yr old female with pmh of hypothyroid and RA; who presented to ED after a fall from a horse which resulted in right femoral neck fx, R 5th metacarpal fx both requiring surgical intervention 05/02/2018. - Patient Problems (1) Status post total hip replacement, right Comment: - POD 3 - Management per ortho team - RLE WBAT with posterior hip precautions - Concern about discharge to home; PMRU referral and auth pending (2) Closed right hand fracture Comment: - POD 3 closed reduction R 5th metacarpal shaft fx, R 3rd metacarpal shaft fx - NWB; OK to use platform walker - Management per ortho team (3) Hypothyroid Comment: - Cont Amour Thyroid - TSH wnl (4) Urinary frequency Comment: - Did not report urinary frequency or night sweats today - UA unremarkable - No leukocytosis - Afebrile (5) Constipation Comment: - Cont Colace and Senna - Supp ordered. (6) DVT prophylaxis Comment: -Apixaban per ortho Status and Disposition: OR 05/02/2019. Discharge per ortho recommendations. Attending: Jillian Carrington
[2019-05-05] MEDS: HYDROmorphone INJ1* 1 MG/ML SYRINGE IV SLOW PU PRN (20:23)
[2019-05-06] MEDS: oxyCODONE TAB* 5 MG TAB PO PRN ×4 (00:33→20:43)
[2019-05-06] MEDS: Cyclobenzaprine TAB* 10 MG PO PRN (04:23)
[2019-05-06] MEDS: THYROID 65 MG PO SCH (06:31)
[2019-05-06 06:54] LABS: ABS Eosinophils 0.2 10^3/ul (0-0.6); ABS Lymphocytes 0.8 10^3/ul (1.0-4.8); ABS Monocytes 0.6 10^3/ul (0-0.8); ABS Neutrophils 3.7 10^3/ul (1.5-7.7); Eosinophil % 3.1 %; Hematocrit 28 % (35-47); Hemoglobin 9.8 g/dL (12.0-16.0); Lymphocyte % 15.5 %; Mean Corpuscular HGB Conc 36 g/dL (31-36); Mean Corpuscular Hemoglobin 31 pg (27-31); Mean Corpuscular Volume 86 fL (80-97); Mean Platelet Volume 7.7 fL (7.4-10.4); Platelet Count 177 10^3/uL (150-450); Red Blood Count 3.21 10^6 /uL (3.70-4.87); Red Cell Distribution Width 13 % (10-15); White Blood Count 5.2 10^3/uL (3.5-10.8)
[2019-05-06 07:27] LABS: Calcium 8.5 mg/dL (8.6-10.3); Indirect Bilirubin 0.8 mg/dL (0.3-1.0); Total Bilirubin 0.9 mg/dL (0.2-1.0)
[2019-05-06 07:33] LABS: Albumin/Globulin Ratio 1.1 (1-3); BUN/Creatinine Ratio 20.6 (8-20); EGFR African American 108.7 (>60); EGFR Non-African American 89.8 (>60); Globulin 2.8 g/dL (2-4); Total Protein 5.8 g/dL (6.4-8.9)
--- NOTE | 2019-05-06 09:03 | PN ---
Progress Note - Progress Note Date of Service: 05/06/19 SOAP: Subjective: []Pt seen at bedside. She is comfortable at rest, right hand and right hip pain well controlled. Denies CP, SOB, dizziness, nausea. Objective: []Gen: Appears well, NAD RUE: splint CDI, sensation intact to light touch throughout thumb and distal exposed portion digits. Cap refill less than two seconds distally RLE: Right hip dressing changed, incision CDI with no erythema or discharge, thigh is soft, DF/PF intact, DP2+ Calves supple and nontender without erythema, edema or palpable cords Assessment: []POD 4 s/p 1. Closed reduction and percutaneous fixation of right fifth metacarpal shaft fracture. Dr Tobar 2. Closed treatment of right third metacarpal shaft fracture. Dr Tobar 3. Right total hip arthroplasty s/p R femoral neck fx. Dr Guardado Plan: []RLE: WBAT, posterior hip precautions, PT/OT RUE: Splint CDI, NWB, okay to use platform walker eliquis 2.5 mg po bid x 30 days post op Insurance did not approve PMRU. CM aware to seek rehab placement Vital Signs Temp 98.8 F 05/06/19 07:15 Pulse 91 05/06/19 07:15 Resp 18 05/06/19 10:00 BP 112/60 05/06/19 07:15 Pulse Ox 94 05/06/19 07:15 Intake & Output 05/05/19 05/06/19 05/06/19 18:59 06:59 18:59 Intake Total 750 300 360 Output Total 1050 500 300 Balance -300 -200 60 Intake: Oral 750 300 360 Output: Urine 1050 500 300 Laboratory Last Values WBC 5.2 10^3/uL (3.5-10.8) 05/06/19 06:41 RBC 3.21 10^6 /uL (3.70-4.87) L 05/06/19 06:41 Hgb 9.8 g/dL (12.0-16.0) L 05/06/19 06:41 Hct 28 % (35-47) L 05/06/19 06:41 MCV 86 fL (80-97) 05/06/19 06:41 MCH 31 pg (27-31) 05/06/19 06:41 MCHC 36 g/dL (31-36) 05/06/19 06:41 RDW 13 % (10-15) 05/06/19 06:41 Plt Count 177 10^3/uL (150-450) 05/06/19 06:41 MPV 7.7 fL (7.4-10.4) 05/06/19 06:41 Neut % (Auto) 70.4 % 05/06/19 06:41 Lymph % (Auto) 15.5 % 05/06/19 06:41 [place] % (Auto) 10.7 % 05/06/19 06:41 Eos % (Auto) 3.1 % 05/06/19 06:41 Baso % (Auto) 0.3 % 05/06/19 06:41 Absolute Neuts (auto) 3.7 10^3/ul (1.5-7.7) 05/06/19 06:41 Absolute Lymphs (auto) 0.8 10^3/ul (1.0-4.8) L 05/06/19 06:41 Absolute Monos (auto) 0.6 10^3/ul (0-0.8) 05/06/19 06:41 Absolute Eos (auto) 0.2 10^3/ul (0-0.6) 05/06/19 06:41 Absolute Basos (auto) 0.0 10^3/ul (0-0.2) 05/06/19 06:41 Absolute Nucleated RBC 0.0 10^3/ul 05/06/19 06:41 Immature Gran % 1.0 % (0-9) 05/02/19 05:34 Neutrophils % 82.0 % 05/02/19 05:34 Lymphocytes % 11.0 % 05/02/19 05:34 Monocytes % 4.0 % 05/02/19 05:34 Eosinophils % 2.0 % 05/02/19 05:34 Myelocytes % 1.0 % (0-1) 05/02/19 05:34 Nucleated RBC % 0.0 05/06/19 06:41 Normal RBC Morphology Normal (Normal) 05/02/19 05:34 Hem Pathologist Commnt 05/02/19 05:34 INR (Anticoag Therapy) 1.19 (0.82-1.09) H 05/02/19 05:34 Sodium 132 mmol/L (135-145) L 05/06/19 06:41 Potassium 4.0 mmol/L (3.5-5.0) 05/06/19 06:41 Chloride 99 mmol/L (101-111) L 05/06/19 06:41 Carbon Dioxide 27 mmol/L (22-32) 05/06/19 06:41 Anion Gap 6 mmol/L (2-11) 05/06/19 06:41 BUN 14 mg/dL (6-24) 05/06/19 06:41 Creatinine 0.68 mg/dL (0.51-0.95) 05/06/19 06:41 Est GFR ( Amer) 108.7 (>60) 05/06/19 06:41 Est GFR (Non-Af Amer) 89.8 (>60) 05/06/19 06:41 BUN/Creatinine Ratio 20.6 (8-20) H 05/06/19 06:41 Glucose 111 mg/dL (70-100) H 05/06/19 06:41 Calcium 8.5 mg/dL (8.6-10.3) L 05/06/19 06:41 Total Bilirubin 0.90 mg/dL (0.2-1.0) 05/06/19 06:41 Direct Bilirubin 0.10 mg/dL (0.03-0.18) 05/06/19 06:41 Indirect Bilirubin 0.8 mg/dL (0.3-1.0) 05/06/19 06:41 AST 30 U/L (13-39) 05/06/19 06:41 ALT 67 U/L (7-52) H 05/06/19 06:41 Alkaline Phosphatase 117 U/L (34-104) H 05/06/19 06:41 Total Protein 5.8 g/dL (6.4-8.9) L 05/06/19 06:41 Albumin 3.0 g/dL (3.2-5.2) L 05/06/19 06:41 Globulin 2.8 g/dL (2-4) 05/06/19 06:41 Albumin/Globulin Ratio 1.1 (1-3) 05/06/19 06:41 TSH 4.92 mcIU/mL (0.34-5.60) 05/01/19 01:59 Urine Color Yellow 05/04/19 21:08 Urine Appearance Cloudy 05/04/19 21:08 Urine pH 9.0 (5-9) 05/04/19 21:08 Ur Specific [place] 1.011 (1.010-1.030) 05/04/19 21:08 Urine Protein Negative (Negative) 05/04/19 21:08 Urine Ketones Negative (Negative) 05/04/19 21:08 Urine Blood Negative (Negative) 05/04/19 21:08 Urine Nitrate Negative (Negative) 05/04/19 21:08 Urine Bilirubin Negative (Negative) 05/04/19 21:08 Urine Urobilinogen Negative (Negative) 05/04/19 21:08 Ur Leukocyte Esterase Negative (Negative) 05/04/19 21:08 Urine Glucose Negative (Negative) 05/04/19 21:08 Blood Type O Negative 05/01/19 01:55 Antibody Screen Negative 05/01/19 01:55
[2019-05-06] MEDS: oxyCODONE/Acetamin 5/325 MG* TAB PO PRN (10:00)
[2019-05-06] MEDS: Apixaban* 2.5 MG TAB PO SCH ×2 (10:01→20:42)
[2019-05-06] MEDS: Docusate CAP* 100 MG PO SCH ×2 (10:01→20:43)
--- NOTE | 2019-05-06 18:05 | PN ---
Subjective Date of Service: 05/06/19 Interval History: Patient resting in recliner on assessment. Reports she had a BM today which she is happy about. Reports pain in hip is well controlled. Reports she feels she looks less "yellow" today. Denies abd pain, nasuea, vomiting, calf pain, fever, chills, cp, sob. Objective Active Medications: Acetaminophen (Tylenol Tab*) 650 mg PO Q4H PRN PRN Reason: PAIN - MILD Last Admin: 05/02/19 20:33 Dose: 650 mg Apixaban (Eliquis*) 2.5 mg PO BID [facility] Last Admin: 05/06/19 10:01 Dose: 2.5 mg Bisacodyl (Dulcolax Supp*) 10 mg [place] DAILY PRN PRN Reason: CONSTIPATION Last Admin: 05/06/19 11:19 Dose: 10 mg Cyclobenzaprine HCl (Flexeril Tab*) 10 mg PO TID PRN PRN Reason: SPASMS Last Admin: 05/06/19 04:23 Dose: 10 mg Docusate Sodium (Colace Cap*) 100 mg PO BID [facility] Last Admin: 05/06/19 10:01 Dose: 100 mg Hydromorphone HCl (Dilaudid Inj1s*) 1 mg IV SLOW PU Q3H PRN PRN Reason: PAIN - SEVERE Last Admin: 05/05/19 20:23 Dose: 1 mg Lactated Ringer's (Lactated Ringers 1000 Ml Bag*) 1,000 mls @ 125 mls/hr IV PER RATE [facility] Last Admin: 05/03/19 07:47 Dose: 125 mls/hr Magnesium Hydroxide (Milk Of Magnesia Liq*) 30 ml PO BID PRN PRN Reason: CONSTIPATION Last Admin: 05/05/19 05:53 Dose: 30 ml Pto Med: Nature (Thyroid 65 Mg) 1 tab PO DAILY@0600 [facility] Last Admin: 05/06/19 06:31 Dose: 1 tab Ondansetron HCl (Zofran Odt Tab*) 4 mg PO Q6H PRN PRN Reason: NAUSEA Last Admin: 05/05/19 09:25 Dose: 4 mg Oxycodone HCl (Roxycodone Tab*) 5 mg PO Q6H PRN PRN Reason: PAIN - MODERATE Last Admin: 05/05/19 18:33 Dose: 5 mg Oxycodone HCl (Roxycodone Tab*) 10 mg PO Q6H PRN PRN Reason: PAIN - SEVERE Last Admin: 05/06/19 15:19 Dose: 10 mg Oxycodone/Acetaminophen (Percocet 5/325 Tab*) 1 tab PO Q4H PRN PRN Reason: PAIN - MILD Last Admin: 05/06/19 10:00 Dose: 1 tab Polyethylene Glycol/Electrolytes (Miralax*) 17 gm PO DAILY PRN PRN Reason: CONSTIPATION Last Admin: 05/05/19 09:21 Dose: 17 gm Senna (Senokot Tab*) 1 tab PO BEDTIME PRN PRN Reason: CONSTIPATION Vital Signs - 8 hr 05/06/19 05/06/19 05/06/19 11:15 15:19 16:02 Temperature 98.2 F 98.7 F Pulse Rate 90 104 Respiratory 16 18 16 Rate Blood Pressure 106/62 90/64 (mmHg) O2 Sat by Pulse 94 95 Oximetry Oxygen Devices in Use Now: None Appearance: Comfortable, NAD Eyes: No Scleral Icterus Ears/Nose/Mouth/Throat: Clear Oropharnyx, Mucous Membranes Moist Neck: NL Appearance and Movements; NL JVP Respiratory: Symmetrical Chest Expansion and Respiratory Effort, Clear to Auscultation Cardiovascular: NL Sounds; No Murmurs; No JVD, RRR, No Edema Abdominal: NL Sounds; No Tenderness; No Distention Lymphatic: No Cervical Adenopathy Extremities: No Edema Skin: No Rash or Ulcers Neurological: Alert and Oriented x 3, NL Muscle Strength and Tone Nutrition: Taking PO's Result Diagrams: 05/06/19 06:41 05/06/19 06:41 Additional Lab and Data: Laboratory Results - last 24 hr 05/06/19 05/06/19 06:41 06:41 WBC 5.2 RBC 3.21 L Hgb 9.8 L Hct 28 L MCV 86 MCH 31 MCHC 36 RDW 13 Plt Count 177 MPV 7.7 Neut % (Auto) 70.4 Lymph % (Auto) 15.5 [place] % (Auto) 10.7 Eos % (Auto) 3.1 Baso % (Auto) 0.3 Absolute Neuts (auto) 3.7 Absolute Lymphs (auto) 0.8 L Absolute Monos (auto) 0.6 Absolute Eos (auto) 0.2 Absolute Basos (auto) 0.0 Absolute Nucleated RBC 0.0 Nucleated RBC % 0.0 Sodium 132 L Potassium 4.0 Chloride 99 L Carbon Dioxide 27 Anion Gap 6 BUN 14 Creatinine 0.68 Est GFR ( Amer) 108.7 Est GFR (Non-Af Amer) 89.8 BUN/Creatinine Ratio 20.6 H Glucose 111 H Calcium 8.5 L Total Bilirubin 0.90 Direct Bilirubin 0.10 Indirect Bilirubin 0.8 AST 30 ALT 67 H Alkaline Phosphatase 117 H Total Protein 5.8 L Albumin 3.0 L Globulin 2.8 Albumin/Globulin Ratio 1.1 Microbiology and Other Data: . Assess/Plan/Problems-Billing Assessment: 53 yr old female with pmh of hypothyroid and RA; who presented to ED after a fall from a horse which resulted in right femoral neck fx, R 5th metacarpal fx both requiring surgical intervention 05/02/2018. - Patient Problems (1) Transaminitis Comment: - Mildly elevated AST/ALT yesterday, but already improving today. - No abd pain. - Suspected secondary to trauma or hypotension. - Alk Phos slightly elevated; likely secondary to fx's and recent surgery. (2) Status post total hip replacement, right Comment: - POD 4 - Management per ortho team - RLE WBAT with posterior hip precautions - Concern about discharge to home; PMRU will not be admitting patient as she was declined by insurance (3) Closed right hand fracture Comment: - POD 4 closed reduction R 5th metacarpal shaft fx, R 3rd metacarpal shaft fx - NWB; OK to use platform walker - Management per ortho team (4) Hypothyroid Comment: - Cont Amour Thyroid - TSH wnl (5) Constipation Comment: - Cont Colace and Senna - Supp ordered. (6) DVT prophylaxis Comment: -Apixaban per ortho Status and Disposition: OR 05/02/2019. Discharge per ortho recommendations. Attending: Jillian Carrington
[2019-05-06] MEDS: Senna TAB 8.6 mg* TAB PO PRN (20:43)
[2019-05-07] MEDS: oxyCODONE TAB* 5 MG TAB PO PRN ×4 (02:45→21:03)
[2019-05-07 06:13] LABS: Albumin 3.1 g/dL (3.2-5.2); Albumin/Globulin Ratio 1.1 (1-3); BUN/Creatinine Ratio 18.1 (8-20); Calcium 8.9 mg/dL (8.6-10.3); EGFR African American 101.8 (>60); EGFR Non-African American 84.1 (>60); Globulin 2.8 g/dL (2-4); Potassium 4.2 mmol/L (3.5-5.0); Total Bilirubin 0.9 mg/dL (0.2-1.0); Total Protein 5.9 g/dL (6.4-8.9)
[2019-05-07] MEDS: Cyclobenzaprine TAB* 10 MG PO PRN (06:18)
[2019-05-07] MEDS: THYROID 65 MG PO SCH (06:18)
[2019-05-07] MEDS: Docusate CAP* 100 MG PO SCH ×2 (08:43→21:03)
[2019-05-07] MEDS: Apixaban* 2.5 MG TAB PO SCH ×2 (08:43→21:03)
--- NOTE | 2019-05-07 09:16 | PN ---
Progress Note - Progress Note Date of Service: 05/07/19 SOAP: Subjective: Pt is doing well. Pain of hip and arm are well controlled. Denies F/C, CP/SOB or calf pain. Doing well with PT Objective: PE- 53 y/o WDWN F NAD, A&Ox3 RLE- dressing c/d/i, calf soft NT, +DF/PF ankle, +2 DP pulse, SILT distally RUE- splint c/d/i, able tp f/e fingers, brisk cap refill, NVI Vital Signs Temp Pulse Resp BP Pulse Ox 99.1 F 93 16 101/54 92 05/07/19 07:29 05/07/19 07:29 05/07/19 08:43 05/07/19 07:29 05/07/19 07:29 Laboratory Results - last 24 hr 05/07/19 05:36 Sodium 134 L Potassium 4.2 Chloride 99 L Carbon Dioxide 30 Anion Gap 5 BUN 13 Creatinine 0.72 Est GFR ( Amer) 101.8 Est GFR (Non-Af Amer) 84.1 BUN/Creatinine Ratio 18.1 Glucose 113 H Calcium 8.9 Total Bilirubin 0.90 AST 53 H ALT 80 H Alkaline Phosphatase 220 H Total Protein 5.9 L Albumin 3.1 L Globulin 2.8 Albumin/Globulin Ratio 1.1 Assessment: []POD 5 s/p 1. Closed reduction and percutaneous fixation of right fifth metacarpal shaft fracture. Dr Tobar 2. Closed treatment of right third metacarpal shaft fracture. Dr Tobar 3. Right total hip arthroplasty s/p R femoral neck fx. Dr Guardado Plan: []RLE: WBAT, posterior hip precautions, PT/OT RUE: Splint CDI, NWB, okay to use platform walker Shower today, cover splint on RUE to keep dry. Ok to remove hip dressing for shower, clean with gentle soap and water, pat dry and redress with gauze and tape eliquis 2.5 mg po bid x 30 days post op PMRU denied. Awaiting rehab placement
--- NOTE | 2019-05-07 18:59 | PN ---
Subjective Date of Service: 05/07/19 Interval History: Patient resting in bed on assessment. Reports pain is well controlled. Feels pleased with her activity as she feels she is able to transfer and move leg with more ease than previously. Denies numbness/tingling, calf pain, sob, cp, palpitations, fever, chills Objective Active Medications: Acetaminophen (Tylenol Tab*) 650 mg PO Q4H PRN PRN Reason: PAIN - MILD Last Admin: 05/02/19 20:33 Dose: 650 mg Apixaban (Eliquis*) 2.5 mg PO BID [facility] Last Admin: 05/07/19 08:43 Dose: 2.5 mg Bisacodyl (Dulcolax Supp*) 10 mg OH DAILY PRN PRN Reason: CONSTIPATION Last Admin: 05/06/19 11:19 Dose: 10 mg Cyclobenzaprine HCl (Flexeril Tab*) 10 mg PO TID PRN PRN Reason: SPASMS Last Admin: 05/07/19 06:18 Dose: 10 mg Docusate Sodium (Colace Cap*) 100 mg PO BID [facility] Last Admin: 05/07/19 08:43 Dose: 100 mg Hydromorphone HCl (Dilaudid Inj1s*) 1 mg IV SLOW PU Q3H PRN PRN Reason: PAIN - SEVERE Last Admin: 05/05/19 20:23 Dose: 1 mg Lactated Ringer's (Lactated Ringers 1000 Ml Bag*) 1,000 mls @ 125 mls/hr IV PER RATE [facility] Last Admin: 05/03/19 07:47 Dose: 125 mls/hr Magnesium Hydroxide (Milk Of Magnesia Liq*) 30 ml PO BID PRN PRN Reason: CONSTIPATION Last Admin: 05/05/19 05:53 Dose: 30 ml Pto Med: Nature (Thyroid 65 Mg) 1 tab PO DAILY@0600 [facility] Last Admin: 05/07/19 06:18 Dose: 1 tab Ondansetron HCl (Zofran Odt Tab*) 4 mg PO Q6H PRN PRN Reason: NAUSEA Last Admin: 05/05/19 09:25 Dose: 4 mg Oxycodone HCl (Roxycodone Tab*) 5 mg PO Q6H PRN PRN Reason: PAIN - MODERATE Last Admin: 05/05/19 18:33 Dose: 5 mg Oxycodone HCl (Roxycodone Tab*) 10 mg PO Q6H PRN PRN Reason: PAIN - SEVERE Last Admin: 05/07/19 14:50 Dose: 10 mg Oxycodone/Acetaminophen (Percocet 5/325 Tab*) 1 tab PO Q4H PRN PRN Reason: PAIN - MILD Last Admin: 05/06/19 10:00 Dose: 1 tab Polyethylene Glycol/Electrolytes (Miralax*) 17 gm PO DAILY PRN PRN Reason: CONSTIPATION Last Admin: 05/05/19 09:21 Dose: 17 gm Senna (Senokot Tab*) 1 tab PO BEDTIME PRN PRN Reason: CONSTIPATION Last Admin: 05/06/19 20:43 Dose: 1 tab Vital Signs - 8 hr 05/07/19 05/07/19 05/07/19 11:17 14:50 15:12 Temperature 98.7 F 97.5 F Pulse Rate 92 93 Respiratory 14 16 16 Rate Blood Pressure 102/60 96/54 (mmHg) O2 Sat by Pulse 97 97 Oximetry 05/07/19 16:50 Temperature Pulse Rate Respiratory 16 Rate Blood Pressure (mmHg) O2 Sat by Pulse Oximetry Oxygen Devices in Use Now: None Appearance: Comfortable, NAD Eyes: No Scleral Icterus Ears/Nose/Mouth/Throat: Clear Oropharnyx, Mucous Membranes Moist Neck: NL Appearance and Movements; NL JVP Respiratory: Symmetrical Chest Expansion and Respiratory Effort, Clear to Auscultation Cardiovascular: NL Sounds; No Murmurs; No JVD, RRR, No Edema Abdominal: NL Sounds; No Tenderness; No Distention Lymphatic: No Cervical Adenopathy Extremities: No Edema Skin: - - Dressing to RLE CDI Neurological: Alert and Oriented x 3, NL Muscle Strength and Tone Nutrition: Taking PO's Result Diagrams: 05/06/19 06:41 05/07/19 05:36 Additional Lab and Data: Laboratory Results - last 24 hr 05/07/19 05:36 Sodium 134 L Potassium 4.2 Chloride 99 L Carbon Dioxide 30 Anion Gap 5 BUN 13 Creatinine 0.72 Est GFR ( Amer) 101.8 Est GFR (Non-Af Amer) 84.1 BUN/Creatinine Ratio 18.1 Glucose 113 H Calcium 8.9 Total Bilirubin 0.90 AST 53 H ALT 80 H Alkaline Phosphatase 220 H Total Protein 5.9 L Albumin 3.1 L Globulin 2.8 Albumin/Globulin Ratio 1.1 Microbiology and Other Data: . Assess/Plan/Problems-Billing Assessment: 53 yr old female with pmh of hypothyroid and RA; who presented to ED after a fall from a horse which resulted in right femoral neck fx, R 5th metacarpal fx both requiring surgical intervention 05/02/2018. - Patient Problems (1) Transaminitis Comment: - Likely secondary to trauma - Mildly elevated AST/ALT - No abd pain. - Suspected secondary to trauma or hypotension. - Alk Phos slightly elevated; likely secondary to fx's and recent surgery. (2) Status post total hip replacement, right Comment: - POD 5 - Management per ortho team - RLE WBAT with posterior hip precautions - Concern about discharge to home; [facility] will not be admitting patient as she was declined by insurance (3) Closed right hand fracture Comment: - POD 5 closed reduction R 5th metacarpal shaft fx, R 3rd metacarpal shaft fx - NWB; OK to use platform walker - Management per ortho team (4) Hypothyroid Comment: - Cont [place] Thyroid - TSH wnl (5) Constipation Comment: - Had BM yesterday - Cont Colace and Senna - Supp ordered. (6) DVT prophylaxis Comment: -Apixaban per ortho Status and Disposition: OR 05/02/2019. Discharge per ortho recommendations. Attending: Elizabeth Pena
[2019-05-07] MEDS: Magnesium Hydroxide LIQ* 30 ML UDC PO PRN (21:02)
[2019-05-07] MEDS: Senna TAB 8.6 mg* TAB PO PRN (21:03)
[2019-05-08] MEDS: oxyCODONE TAB* 5 MG TAB PO PRN ×2 (02:58→08:45)
[2019-05-08] MEDS: THYROID 65 MG PO SCH (05:43)
[2019-05-08 08:12] VITALS: BP 109/64
[2019-05-08] MEDS: Apixaban* 2.5 MG TAB PO SCH (08:44)
[2019-05-08] MEDS: Docusate CAP* 100 MG PO SCH (08:44)
--- NOTE | 2019-05-08 10:53 | DS ---
CC: Dr. Valle* DISCHARGE SUMMARY: DATE OF ADMISSION: 05/01/19 DATE OF DISCHARGE: 05/08/19 PRIMARY CARE PROVIDER: Dr. Valle. ATTENDING PHYSICIAN: Dr. Pena* (dictated by Charli Lugo NP). PRIMARY DIAGNOSES: 1. Status post right hip replacement. 2. Transaminitis. 3. Closed right hand fracture. 4. Hypothyroid. 5. Constipation. SECONDARY DIAGNOSIS: Questionable rheumatoid arthritis. CONSULTATIONS WHILE IN THE HOSPITAL: Ulises Milligan. PROCEDURES WHILE IN THE HOSPITAL: 1. Closed reduction and percutaneous fixation of right fifth metacarpal shaft fracture. 2. Closed treatment of right hand metacarpal shaft fracture. 3. Right total hip arthroplasty, status post right femoral neck fracture. STUDIES WHILE IN THE HOSPITAL: 1. Hand x-ray: Impression: Nondisplaced fracture of the third metacarpal. Angulated fracture of the fifth metacarpal on the right hand. 2. Right hip and pelvis x-ray: Displaced fracture of the right femoral neck. 3. EKG: Sinus rhythm. 4. Hip x-ray: Expected postoperative changes related to total right hip arthroplasty. 5. Hip x-ray: Expected postoperative changes after total right hip arthroplasty. DISCHARGE HOME MEDICATIONS: Continued home medications: [place] Thyroid 30 mg p.o. daily. New home medications: 1. Eliquis 2.5 mg p.o. b.i.d. 2. Flexeril 10 mg p.o. t.i.d. p.r.n. 3. Colace 100 mg p.o. b.i.d. 4. Oxycodone 5 mg q.6 hours p.r.n. pain. 5. Oxycodone 10 mg q.6 hours p.r.n. pain. HISTORY OF PRESENT ILLNESS/HOSPITAL COURSE: Ms. Dove is a 53-year-old female with a past medical history significant for hypothyroid and possibly rheumatoid arthritis, who resented to the emergency department on 05/01/19 after falling off her horse. Please see history and physical dictated by Magda Morgan DO, for complete summary of events leading up to this hospitalization, but in short, the patient presented to the emergency room via EMS and was found to have a right femoral neck fracture and right fifth metacarpal fracture. Given these findings, the patient was admitted to the medical floor for further evaluation and treatment. While hospitalized, the patient was evaluated by Delores Guardado MD, from Orthopedics. It was decided that the patient would have operative treatment for her right femoral neck fracture and right hand metacarpal fractures. The patient was a good candidate for surgery as she has no significant medical history. She has good exercise capacity and is active throughout the day. She is a runner, has no shortness of breath or chest pain with activities. The patient was then taken to the OR on 05/02/19 and underwent a closed reduction and percutaneous fixation of the right fifth metacarpal shaft fracture with Dr. Tobar. Dr. Tobar also completed a closed treatment of the right third metacarpal shaft fracture. At the same time, Dr. Guardado performed a right total hip arthroplasty. The patient tolerated the procedures well and was transferred to short-stay surgical for recovery and for physical therapy/occupational therapy. The patient has done well with physical therapy and occupational therapy, but given her multiple fractures and the fact that she lives alone at home with multiple stairs, it was decided that the patient would benefit from subacute rehab. The patient's hospitalization was only slightly complicated by the fact that a friend commented that she appeared slightly yellow. Therefore, liver function tests were obtained. The patient had a mild elevation noted in her AST, ALT of 66 and 107 respectively on 05/05/19. The patient had no abdominal pain or any other complaints and the remainder of her liver functions tests were normal. These labs were repeated the next day. Her AST had normalized to 30, but her ALT remained only slightly elevated at 67. At this time, she was also noted to now have an additional elevation in her alk phos at 117. Finally, these labs were repeated again on 05/07/19, and she had an elevation of AST and ALT only slightly at 53 and 80 respectively. She also had even further elevation in her alk phos of 220. The patient remained free from any abdominal pain or other concerning symptoms. The patient does not appear jaundiced. We suspect that this is secondary to the patient's trauma, i.e., falling off a horse and also the trauma of surgery. In addition, these labs, specifically alk phos could be elevated given bone fracture and remodelling due to healing. The patient is stable for [facility]. REVIEW OF SYSTEMS: The patient reports pain in right hip and right hand are currently "4"/10. The patient denies numbness and tingling, calf pain, fever, chills, abdominal pain, chest pain, shortness of breath, nausea, vomiting. A 14 - point review of systems was completed and all others were negative. PHYSICAL EXAMINATION: Vital Signs: Temp 98.7, HR 92, RR 16, O2 saturation 98% on room air, BP 109/ 64. General: Ms. Dove is sitting in bed. Appears to be in no acute distress. Appears stated age. HEENT: EOMs intact. PERRLA. Oral mucosa is moist without lesion. Posterior pharynx is clear. No icterus. Neck: Supple. No lymphadenopathy. Cardiac: S1, S2 present. Regular rate and rhythm. No murmurs, rubs, or gallops. Respiratory: No accessory muscle use. Good aeration. Lungs are clear. No rhonchi, wheezes, or rales. Abdomen: Soft, nontender. Bowel sounds normoactive. Extremities: No clubbing or cyanosis. No edema. Skin is warm and smooth bilaterally. Pedal pulses are 2+ bilaterally. CMS intact. Musculoskeletal: The patient reports pain to right hip and right hand. Otherwise, no pain or deformities. Skin: Skin is grossly intact. No jaundice noted. Dressing to right hip and right hand are clean, dry, and intact. Neuro: Neuro exam is grossly intact. No focal deficits or weakness. DIAGNOSTIC STUDIES/LABORATORY DATA: CBC obtained 05/06/19; WBC 5.2, hemoglobin 9.8, hematocrit 28, platelets 177. CMP obtained 05/07/19; sodium 134, potassium 4.2, chloride 99, carbon dioxide 30, BUN 13, creatinine 0.72, glucose 113, total bilirubin 0.90. AST 53, ALT 80, alk phos 220, total protein 5.9, albumin 3.1, TSH 4.92. DISCHARGE PLAN/FOLLOWUP: 1. Status post total right hip replacement: As mentioned above, the patient underwent a total right hip arthroplasty status post a right femoral neck fracture. The patient is weightbearing as tolerated with posterior hip precautions. The patient should continue Eliquis 2.5 mg p.o. b.i.d. x30 days postop. The patient should follow up with Orthopedics as discussed in discharge instructions. 2. Closed right hand fracture: The patient is status post a closed reduction and percutaneous fixation of right fifth metacarpal shaft fracture and closed treatment of right third metacarpal shaft fracture. The patient has a splint which should be kept clean, dry, and intact. The patient is nonweightbearing to this upper extremity. It is okay by Ortho for the patient to use a platform walker. The patient should follow up with Orthopedics. 3. Transaminitis: As mentioned above, the patient's AST and ALT were only mildly elevated. We suspect this is secondary to trauma and possibly hypotension in the postoperative period. I have discussed this with the patient and recommended a followup with her primary care or the provider at [facility] to have repeat labs in approximately 1 to 2 weeks. 4. Elevated alk phos: Once again, we suspect this is secondary to trauma, fracture, bone remodeling. I have discussed this with the patient we states understanding. Given the degree of elevation, I have recommended to follow up in 1 to 2 weeks for repeat labs. I have also instructed the patient to monitor herself for signs and symptoms of any worsening condition and bring this to the attention of the staff at [facility]. 5. Hypothyroid: The patient should continue her [place] Thyroid. 6. Constipation: The patient did have some constipation in the postoperative period but she did have a BM yesterday. The patient should continue her bowel regimen and decrease the use of narcotics if possible. 7. Suspected RA: The patient should follow up with her primary care and counter intelligence technician. 8. Followup: As mentioned above, I have recommended that the patient have repeat liver function tests including AST, ALT, and alk phos in 1 to 2 weeks. I would recommend that she is evaluated by her primary care and/or provider at the rehab facility in 1 to 2 days. She is to follow up with Dr. Guardado and Dr. Tobar within 10 to 14 days. She will need to call their office for this appointment. 9. Pain control: The patient has been sent prescriptions for pain control including oxycodone 5 mg, oxycodone 10 mg, and Flexeril 10 mg. The patient should continue these medications for pain treatment. As pain improved, she can reduce to use other [id number] pain medications. 10. Education: The patient was educated on the signs and symptoms of new or worsening conditions and when to return to the emergency department. The patient stated understanding. This is a summarized report of a complex medical history and hospital stay. For further details, please see entire medical record. TIME SPENT: Approximately 35 minutes was spent on this discharge, greater than half the time was spent [id number] with the patient discussing discharge plans and instructions. This plan has been discussed with my attending, Dr. Pena , who is in agreement with my plan of care. Reviewed by CHARLI LUGO NP 05/13/19 @ 1224 [id number]/CPS #: [id number] JOELLE
== END 2019-05-08 11:51 | DRG 301 ==
LOC: ED 21:04 → MED 05-01 01:38 → SSU 05-02 01:24
PROVIDERS: ADMIT Hospitalist; ATTEND Internal Medicine
PROC: 0PSPXZZ Reposition Right Metacarpal, External Approach (ICD-10-PCS; 2019-05-02)
PROC: 0SR904A Replacement of Right Hip Joint with Ceramic on Polyethylene Synthetic Substitute, Uncemented, Open Approach (ICD-10-PCS; principal; 2019-05-02 08:00)
PROC: 0PSP34Z Reposition Right Metacarpal with Internal Fixation Device, Percutaneous Approach (ICD-10-PCS; 2019-05-02 08:00)
DX: S72.001A Fracture of unspecified part of neck of right femur, initial encounter for closed fracture (principal); S62.326A Displaced fracture of shaft of fifth metacarpal bone, right hand, initial encounter for closed fracture; R74.0 Nonspecific elevation of levels of transaminase and lactic acid dehydrogenase [LDH]; R74.8 Abnormal levels of other serum enzymes; E03.9 Hypothyroidism, unspecified; K59.00 Constipation, unspecified; M06.9 Rheumatoid arthritis, unspecified; G43.909 Migraine, unspecified, not intractable, without status migrainosus; R40.2362 Coma scale, best motor response, obeys commands, at arrival to emergency department; R40.2142 Coma scale, eyes open, spontaneous, at arrival to emergency department; R40.2252 Coma scale, best verbal response, oriented, at arrival to emergency department; I95.9 Hypotension, unspecified; S62.302A Unspecified fracture of third metacarpal bone, right hand, initial encounter for closed fracture; R35.0 Frequency of micturition; M16.11 Unilateral primary osteoarthritis, right hip; M24.851 Other specific joint derangements of right hip, not elsewhere classified; M25.751 Osteophyte, right hip; V80.010A Animal-rider injured by fall from or being thrown from horse in noncollision accident, initial encounter; Y92.9 Unspecified place or not applicable; Z79.01 Long term (current) use of anticoagulants; Z82.49 Family history of ischemic heart disease and other diseases of the circulatory system; Z83.3 Family history of diabetes mellitus; Z81.8 Family history of other mental and behavioral disorders; Z82.5 Family history of asthma and other chronic lower respiratory diseases; Z88.2 Allergy status to sulfonamides
CPT/HCPCS: 36415; 76000; 80048; 80053; 80076; 81003; 82248; 84443; 85014; 85018; 85025; 85027; 85060; 85610; 86850; 86900; 86901; 88305; 88311; 93005; 99285; A9270-GY; C1713; C1776; J0690; J1100; J1170; J1240; J1644; J1885; J2250; J2270; J2405; J2704; J2710; J3010; J3490